=== PATIENT | male | born 1950 | race Caucasian/White ===

== ENCOUNTER 2020-11-07 06:35 | Day surgery (SDC) | payer MEDICARE, MEDICAID, SELFPAY ==
[2020-11-07 07:03] VITALS: BP 173/77; PULSE 63; RESP 18; TEMP 36.4; O2SAT 99; BMI 23.1
--- NOTE | 2020-11-07 07:13 | PCM.HP.STD ---
HPI - General HPI Narrative JALEEL SINGH, is a 69 M who presents to clinic with complaint of severe thickening of toenails. he is here to have the toenails removed to b/l hallux [facility] Medical History (Updated 11/07/20 @ 07:[address] Stuart Khoury, DPM) Alcohol use Arthritis Degenerative disc disease Easy bruising History of stress test Hypertension Injury of head and neck Leg cramps Smoker Wears dentures Home Medications atenolol 50 mg PO QHS 10/31/20 [History Last Taken Unknown] glucos sul [id number] [Glucosamine Chondroitin] 1 cap PO DAILY 10/31/20 [History Last Taken Unknown] multivitamin 1 tab PO DAILY 10/31/20 [History Last Taken Unknown] Allergy/AdvReac Type Severity Reaction Status Date / Time No Known Allergies Allergy Verified 11/07/20 07:00 Surgical History (Updated 10/31/20 @ 11:37 by Janet Hirsch) History of colonoscopy History of hernia repair Social History Smoking Status: Current every day smoker tobacco type: pipe Vital Signs Vital Signs Vital Signs: 11/07/20 07:01 11/07/20 07:03 Temperature 97.5 F L Temperature Source Temporal Pulse Rate 63 Respiratory Rate 18 Respiratory Pattern Normal Blood Pressure 173/77 H Blood Pressure Mean 109 Blood Pressure Source Monitor Blood Pressure Position Semi-Fowlers Blood Pressure Location Right Arm Pulse Ox 99 Oxygen Delivery Method Room Air Weight Weight: 75.387 kg Body Mass Index (BMI) 23.1 Physical Exam Narrative patient is alert and orientated x 3. he does not appear in any distress vascular: DP and PT pulses are palpable. CFT is less than 5 seconds. skin temperature is warm to warm. derm: b/l hallux toenail is severely thick and dystrophic cardiac: regular rate and rhythm lungs: clear and symmetrical Results Lab / Micro Data Micro: Microbiology 11/06/20 08:15 Interface Orders SARS-CoV-2 Antigen (Rapid) - Final Assessment & Plan Assessment/Plan (1) Onychomycosis: PLAN: patient with severe thickening of b/l hallux toenail. discussed options not limited to debridement vs medication vs removal. patient has elected for removal. pvr does show adequate perfusion to heal. patient will proceed with removal of b/l hallux toenail today under light sedeation. Patient does inform me today that he does smoke pipe tobacco. I informed patient that smoking does place him at risk of slow healing. I informed him that if he experiences slow healing, he could be at risk of infection of toe or bone and lead to amputation. I reviewed his pvr carefully with him and he does have what appears to be adequate perfusion to heal a toenail removal. I still informed patient it would be reasonable to wait until he stops smoking to proceed with procedure. he understands but he would like to proceed with procedure today. in front of [facility] nursing staff, patient freely accepts risk of removing toenail while smoking. he understands he is at risk of losing his toe due to smoking.
[2020-11-07] MEDS: Lactated Ringers 1,000 ML 100 ML IV (07:20)
--- NOTE | 2020-11-07 07:55 | PCM.DC ---
Discharge Instructions Diet Discharge Diet: No restrictions Activity Discharge Activity: Return to Normal Activity Return to work on:: 11/08/20August shower in (days): 1 Weight Bearing Status: Weight bearing as tolerated Dressing / Incision Call your doctor if your incision/area has: Continuous Slow Oozing, Sudden Increased Bleeding, Increased Pain/ Swelling, Increased Redness, Foul Smelling Discharge and Swelling at the incision site Call your doctor if you observe: Fever of 101 or Higher Change Dressing in: 1 day Remove Dressing in: 1 day Cleanse incision/area with: Soap & Water and - (soak the toes in soap and water twice daily x 10 minutes. apply neosporin and band aid. for the first few days, keep toe covered when showering. keep toes out of dirt or sand. ) Follow Up Care Please Follow Up With: Stuart Khoury DPM When: in 2 weeks Test Results: Test results from this visit will be discussed in further detail at your follow-up appointment, if applicable. Discharge Plan Admission Attending Provider: Stuart Khoury Primary Care Provider: Wai Turner Discharge Orders/Prescriptions Prescriptions: No Action atenolol 50 mg tablet 50 mg PO QHS RF: 0 multivitamin Tablet 1 tab PO DAILY RF: 0 Glucosamine Chondroitin 550-30-1 mg Capsule 1 cap PO DAILY RF: 0 Referrals / Follow Up: Wai Turner MD [Primary Care Provider] - Disposition Disposition (needs filled in before D/C Order can be placed): Home, Self Care
--- NOTE | 2020-11-07 07:57 | PCM.OPRPT ---
Report of Operation Date of Procedure: 11/07/20 Pre-Operative Diagnosis: onychomycosis, b/l hallux Post-Operative Diagnosis: onychomycosis b/l hallux Surgery/Procedure Performed:: phenol matrixectomy, b/l hallux Description of Surgical Findings:: severe thickening of b/l hallux toenail Surgeon: Stuart Khoury Type of Anesthesia: MAC/Supplemental Specimen's removed: none Drains: none Estimated Blood Loss (mL): minimal Description of Procedure: patient is a pleasant 69 year old male who complains of painful thickening toenails of b/l hallux who often times develops ingrowing nail or pain with cutting of the nail. he has been seen and evaluated by me. he is requesting removal of b/l hallux toenail. I discussed the procedure in great detail to remove the toenails. we discussed the post-op instructions to cleanse the toe daily and to apply local wound care to the toe. I discussed risks of this procedure not limited to infection, pain, swelling, bleeding, slow wound healing, recurrent nail growth, loss of toe. of note, patient informs me on day of surgery that he does smoke pipe tobacco. I informed patient that smoking can lead to slow healing and increased risk of loss of toe. I offered patient chance to reschedule. he states he really wants the toenails to b/l hallux removed. for this reason, he freely accepts risk of slow healing and/or loss of toe. Of note, he does have pvr performed last month and it does show he has normal perfusion to his toes. All risks and benefits and alternatives were dicussed. patient consents to proceed. patient was transferred to the operating room and placed on the operating room table in the supine position. he was identified by name and procedure. the b/l hallux was injected with 3 cc of 1% lidocaine plain. The b/l lower extremity was prepped and draped in the usual aseptic technique. time out was performed making note of procedure. attention was then directed to the right hallux. A digital tourniquet was applied to right hallux. the right hallux toenail was the freed with elevator and removed totally. a curette was used to assure no spicule left behind. all nonviable tissue was debrided. three applications of phenol was then applied to right hallux nail bed x 30 seconds each application. the toe was then irrigated. the tournqieut was removed and hemostasis was achieved. the toe was dressed with topical antibiotic, adaptic, 4x4 guaze and coban. attention was then directed to the left hallux. A digital tourniquet was applied to left hallux. the left hallux toenail was the freed with elevator and removed totally. a curette was used to assure no spicule left behind. all nonviable tissue was debrided. The proximal nail bed was found to be tearing due to thickening of the nail plate. no deep wound or exposed bone was noted. I felt that the best treatment for this would be to reinforce the proximal nail bed with suture. the nail bed that was tearing was cleansed with saline and reinforced with 2 simple interupted suture (4-0 moncryl). three applications of phenol was then applied to the left hallux nail bed x 30 seconds each application. the toe was then irrigated. the tournquet was removed and hemostasis was achieved. the toe was dressed with topical antibiotic, adaptic, 4x4 guaze and coban. Patient was then awakened and found to be in stable condition. he was discharged home in stable condition
[2020-11-07] MEDS: Lidocaine 1% (20 ml mdv) 20 ML Vial (08:18)
[2020-11-07] MEDS: Bacitracin 500 UNITS/GM PACKET (08:28)
[2020-11-07 08:50] VITALS: BP 173/77; BP 182/96; PULSE 60; RESP 16; TEMP 36.2; O2SAT 97
[2020-11-07 08:55] VITALS: BP 173/77; BP 179/87; PULSE 56; RESP 16; O2SAT 98
[2020-11-07 09:00] VITALS: BP 168/85; BP 173/77; PULSE 58; RESP 16; O2SAT 98
[2020-11-07 09:05] VITALS: BP 173/77; BP 182/88; PULSE 59; RESP 16; TEMP 36.1; O2SAT 97
[2020-11-07 10:00] VITALS: BP 173/77
== END 2020-11-07 10:10 | disposition home or self-care (01) ==
LOC: SDC 06:38 → AC 06:39
PROVIDERS: PCP Family Medicine; Referring Provider Podiatrist Foot & Ankle Surgery; Visit Provider Podiatrist Foot & Ankle Surgery
PROC: (CPT 11750; principal; 2020-11-07 08:00)
DX: B35.1 Tinea unguium (principal); I10 Essential (primary) hypertension; M19.90 Unspecified osteoarthritis, unspecified site; F17.290 Nicotine dependence, other tobacco product, uncomplicated; Z20.822 Contact with and (suspected) exposure to COVID-19; Z79.899 Other long term (current) drug therapy
CPT/HCPCS: 00400; 11750; 87426; C9803; J7120

== ENCOUNTER → 2021-09-02 | Outpatient (CLI) | payer MEDICARE, MEDICAID, SELFPAY ==
--- NOTE | 2021-09-02 08:02 | MRI_ITS ---
STUDY: MRI LUMBAR SPINE WITHOUT CONTRAST REASON FOR EXAM: Male, 70 years old. Low back pain. Degenerative disc disease. Stenosis. TECHNIQUE: Standardized fat and water weighted pulse sequences were obtained in the sagittal and axial planes. COMPARISON: Lumbar spine radiographs 11/15/2020. FINDINGS: T10-T11: (Sagittal only). MODIC type I degenerative vertebral marrow edema underneath the vertebral endplates, greater at T10. Moderate disc space height narrowing. Schmorl''s nodes in the posterior vertebral endplates. Minimal ventral extradural defect due to small posterior bulging annulus. Suspicious central canal stenosis with an AP canal diameter of 5.2 mm due to posterior marginal spurs, posterior ligamenta flava hypertrophy and moderately pronounced bilateral degenerative facet arthropathy. Normal bilateral intervertebral neural foramina. T11-T12: (Sagittal only). Normal T11 inferior endplate. Mild to moderate old anterior wedge compression fracture of the upper T12 vertebral body causing increased anterior disc space height. Schmorl''s nodes in the posterior vertebral endplates. Minimal ventral extra dural defect due to tiny posterior bulging annulus. Suspicious mild central canal stenosis with an AP canal diameter of 8.1 mm. Normal bilateral intervertebral neural foramina. T12-L1: (Sagittal only). Prominent Schmorl''s node in the T12 inferior endplate. Normal L1 superior endplate. Increased anterior disc space height due to old anterior wedge compression fracture of the T12 vertebral body. Normal central canal and bilateral intervertebral neural foramina. Normal lumbar lordosis. Moderate levoscoliosis of the lumbar spine. Normal conus medullaris that terminates at the mid L1 vertebral body level. L1-2: Normal L1 inferior endplate. Schmorl''s node in the central L2 superior endplate. Moderate disc space height narrowing. Mild right lateral degenerative subluxation of L1 on L2. Mild degenerative retrolisthesis of L1 on L2. Mild asymmetric degenerative facet arthropathy. Normal central canal and bilateral lateral recesses. Normal bilateral intervertebral neural foramina. L2-3: Pronounced right-sided disc space height narrowing. MODIC type I degenerative vertebral marrow edema underneath the right side of the vertebral endplates. Prominent dorsal epidural lipomatosis. Mild bilateral degenerative facet arthropathy. Pronounced central canal stenosis with an AP canal diameter of 4.3 mm. Normal bilateral lateral recesses. Mild stenosis of the right intervertebral neural foramen. Normal left intervertebral neural foramen. L3-4: Pronounced right-sided disc space height narrowing. MODIC type I degenerative vertebral marrow edema underneath the left side of the vertebral endplates. Schmorl''s node in the L4 superior endplate. Pronounced central canal stenosis with an AP canal diameter of at least 3.2 mm. Pronounced stenosis of the left lateral recess. Normal right lateral recess. Pronounced left degenerative facet arthropathy and moderate right degenerative facet arthropathy. Pronounced stenosis of the right intervertebral neural foramen. Normal left intervertebral neural foramen. L4-5: Pronounced left-sided disc space height narrowing with prominent left lateral marginal spurs. Mild MODIC type I degenerative vertebral marrow edema underneath the right side of the vertebral endplates. Moderately pronounced left iterative facet arthropathy. Mild to moderate right degenerative facet arthropathy. Severe central canal stenosis with an AP canal diameter of 2.7 mm. Mild dorsal epidural lipomatosis. Prominent posterior ligamenta flava hypertrophy. Severe stenosis of the left lateral recess. Mild stenosis of the right lateral recess. Moderately pronounced stenosis of the left intervertebral neural foramen with suspicious impingement of the left L4 nerve due to suspicious small left foraminal cephalad disc extrusion (series 2, images 5-6; series 3, images 5-6). Mild to moderate stenosis of the right intervertebral neural foramen. L5-S1: Normal endplates. Normal disc height, hydration and morphology. Mild to moderate bilateral degenerative facet arthropathy. Normal central canal and bilateral lateral recesses. Mild to moderate stenosis of the left intervertebral neural foramen. Normal right intervertebral neural foramen. Normal visualized sacral ala. Normal visualized paraspinous soft tissue structures. MRI/Spine Lumbar (Routine) IMPRESSION: 1. Severe central canal stenosis at L4-L5 disc space level with an AP canal diameter of 2.7 mm, severe stenosis of the left lateral recess, moderately pronounced stenosis of the left intervertebral neural foramen with suspicious small left foraminal cephalad disc extrusion impinging the left L4 nerve (series 2, images 5-6; series 3, images 5-6). 2. Severe central canal stenosis at L3-L4 disc space level with an AP canal diameter of 3.2 mm, pronounced stenosis of the left lateral recess, pronounced stenosis of the right intervertebral neural foramen and left-sided L3-4 intervertebral osteochondritis (MODIC type I). 3. Pronounced central canal stenosis at L2-L3 disc space level with an AP canal diameter of 4.3 mm and right-sided L2-L3 intervertebral osteochondritis (MODIC type I). 4. Suspicious central canal stenosis at T10-T11 disc space level with an AP canal diameter of 5.2 mm but no axial projections to confirm. Additionally, pronounced T10-T11 intervertebral osteochondritis (MODIC type I) with greater bone marrow edema in the T10 vertebral body. Electronically Signed: Isael Scherer MD at 13:11 EDT ,
== END | disposition home or self-care (01) ==
LOC: MRI 08:02
PROVIDERS: PCP Family Medicine; Referring Provider Orthopaedic Surgery; Visit Provider Orthopaedic Surgery
DX: M48.061 Spinal stenosis, lumbar region without neurogenic claudication (principal); M54.50 Low back pain, unspecified
CPT/HCPCS: 72148

== ENCOUNTER 2022-06-29 09:44 | Observation (INO) | payer MEDICARE, MEDICAID, SELFPAY ==
[2022-06-29 09:45] VITALS: BP 169/87; PULSE 66; RESP 16; TEMP 36.4; O2SAT 95; BMI 24.5
--- NOTE | 2022-06-29 10:25 | RAD_ITS ---
EXAM: XR LEFT FEMUR, 2 VIEWS CLINICAL INDICATION: pain TECHNIQUE: Frontal and lateral views of the left femur. This report was created using [employer] report generation technology. COMPARISON: None. FINDINGS: BONES/JOINTS: No acute abnormality. SOFT TISSUES: Normal. No soft tissue swelling or gas. No radiopaque foreign body. RAD/Femur Min 2 Views IMPRESSION: Intact left femur. Electronically Signed: Sebastien Mariscal MD at 11:04 EDT ,
--- NOTE | 2022-06-29 10:25 | RAD_ITS ---
EXAM: XR PELVIS, 1 OR 2 VIEWS CLINICAL INDICATION: fall TECHNIQUE: Frontal view of the pelvis. This report was created using [employer] report generation technology. COMPARISON: None. FINDINGS: BONES/JOINTS: No acute abnormality. SOFT TISSUES: Normal. No soft tissue swelling or gas. RAD/Pelvis 1 or 2 Views IMPRESSION: No evidence of displaced pelvic fracture. Electronically Signed: Sebastien Mariscal MD at 11:03 EDT ,
--- NOTE | 2022-06-29 10:26 | EKG12_ITS ---
Test Reason : FALL Blood Pressure : / mmHG Vent. Rate : 086 BPM Atrial Rate : 062 BPM P-R Int : 134 ms QRS Dur : 146 ms QT Int : 434 ms P-R-T Axes : 059 -64 069 degrees QTc Int : 519 ms Sinus rhythm with frequent Premature ventricular complexes Left axis deviation Right bundle branch block Abnormal ECG Confirmed by GUERO HOWARD, GILMAR ([id number]), offline editor ARMINDA CRESPO ([id number]) on 07/01/2022 9:54:40 AM Referred By: Confirmed By:GILMAR JACK MD
[2022-06-29] MEDS: 0.9% Normal Saline 1,000 ML 1000 ML IV (10:38)
[2022-06-29 10:40] LABS: Absolute Lymphocyte Count 4.08 X10^3/uL (0.83-4.51); Absolute Neutrophil Count 5.1 X10^3/uL (2.0-7.7); Basophil# 0.04 X10^3/uL; Basophil% 0.4 % (0-1); Eosinophil# 0.08 X10^3/uL; Eosinophils% 0.8 % (0-5); Hematocrit 41.1 % (40-54); Hemoglobin 13.8 g/dL (13.0-16.5); Lymphocyte # 4.08 X10^3/ul (0.83-4.51); Lymphocyte % 39.7 % (19-41); Mean Corp Hgb Conc 33.6 g/dL (32-36); Mean Corpuscular Volume 101.2 fL (80-94); Mean Platelet Vol. 9.1 fl (6.2-12.0); Monocyte# 0.91 X10^3/uL; Monocyte% 8.9 % (0-10); NRBC Flagged by Analyzer 0 % (0-5); Neutrophil # 5.11 X10^3/uL (2.7-7.7); Neutrophil % 49.6 % (47-70); POSITIVE MORPHOLOGY YES; Platelet Count 179 K/mm3 (150-450); RBC Distribution Width CV 12.6 % (11.6-14.6); RBC Distribution Width SD 47.1 fl (35.1-43.9); Red Blood Count 4.06 M/mm3 (4.6-6.2); White Blood Count 10.3 K/mm3 (4.4-11.0)
[2022-06-29 10:45] LABS: Differential Indicated SCAN CRITERIA MET
--- NOTE | 2022-06-29 10:50 | RAD_ITS ---
EXAM: XR CHEST, 1 VIEW CLINICAL INDICATION: Tachycardia TECHNIQUE: Frontal view of the chest. This report was created using [employer] report generation technology. COMPARISON: None. FINDINGS: LUNGS AND PLEURAL SPACES: Normal. No consolidation or edema. No pneumothorax. No effusion. HEART: Normal heart size. MEDIASTINUM: No mediastinal or hilar mass. BONES/JOINTS: Degenerative narrowing of the glenohumeral joints. Mild dextroscoliosis of the upper thoracic spine. SOFT TISSUES: Normal. RAD/Chest 1 View (Portable) IMPRESSION: No acute cardiopulmonary abnormality. Electronically Signed: Sebastien Mariscal MD at 11:03 EDT ,
[2022-06-29 11:03] LABS: ALB/GLOB Ratio 0.9 RATIO (0.9-2.4); AST(SGOT) 31 U/L (15-37); Alanine Aminotransfer ALT/SGPT 25 U/L (16-61); Albumin, Serum 3.5 g/dL (3.2-5.0); Alkaline Phosphatase 66 U/L (45-117); Anion Gap 7 (5-15); BUN 20 mg/dL (7-18); BUN/Creat Ratio 15.9 RATIO (10-20); Calcium,Total 9.5 mg/dL (8.5-10.1); Chloride 98 mmol/L (98-107); Creatinine, Serum 1.26 mg/dL (0.70-1.30); EST Glomerular Filtration Rate 60 mL/min (>60); Est Glom Filt Rate - Afr Amer 72 mL/min (>60); Estimated Creatinine Clearance 57.27 ml/min; Globulin 3.7 g/dL (2.2-4.2); Glucose 106 mg/dL (74-106); Potassium 4.7 mmol/L (3.5-5.1); Protein, Total 7.2 g/dL (6.4-8.2); Sodium Level 133 mmol/L (136-145); Troponin-I HS 10 pg/mL (3.0-78.0)
--- NOTE | 2022-06-29 11:08 | EDS_ITS ---
HPI History of Present Illness Chief Complaint: Lower Extremity Injury Narrative Narrative: 71-year-old male presenting with left hip and left posterior leg pain. The fall 7 days ago. He states he was in his basement and he turned wrong and fell onto his left leg. He reports that he has been low crawling around his house and having difficulty getting around. Today he was able to crawl over to his washing machine and start a load of laundry and somehow was able to pull himself up and stand on both legs although it was difficult. He anteverting close the lid onto his right hand has a superficial abrasion here. He states that at this point he was having so much trouble getting around for a week that he called a friend who called EMS. Patient states he thinks he needs correction for short while because he cannot care for himself at home. He does admit to drinking about 3 beers a day. He denies drinking alcohol 2-day. PFSH [facility] Medical History Alcohol use Arthritis Degenerative disc disease Easy bruising History of stress test Hypertension Injury of head and neck Leg cramps Smoker Wears dentures Home Medications atenolol 50 mg tablet 100 mg PO QHS bp 10/31/20 [History Last Taken Unknown] glucosamine sulf dipot chlr,msm,chond 550 mg-C 30 mg-fernando 1 mg capsule (Glucosamine Chondroitin) 1 cap PO DAILY supplement 10/31/20 [History Last Taken Unknown] multivitamin 1 tab PO DAILY supplement 10/31/20 [History Last Taken Unknown] amlodipine 10 mg tablet 10 mg PO DAILY 06/29/22 [History Last Taken Unknown] Allergy/AdvReac Type Severity Reaction Status Date / Time No Known Allergies Allergy Verified 11/15/20 08:24 Family History Mother Diabetes Surgical History History of colonoscopy History of hernia repair Social History household members: none housing: house Smoking Status: Current every day smoker tobacco type: pipe other: every day since . alcohol intake: current alcohol intake frequency: 3 or more drinks per day Alcohol type: beer substance use type: does not use what type of physical activity do you participate in: walking frequency: daily seatbelt use: always do you feel safe at home: Yes ROS ROS ED Constitutional Constitutional ED: Denies chills or fever(s) Eyes Eyes: Denies change in vision or diplopia ENT ENT ED: Denies rhinorrhea or sore throat Cardiovascular Cardiovascular: Denies chest pain or palpitations Respiratory/Chest Respiratory/Chest: Denies cough or dyspnea Gastrointestinal Gastrointestinal: Denies abdominal pain, nausea or vomiting Genitourinary Genitourinary ED: Denies dysuria or hematuria Musculoskeletal Musculoskeletal: Reports other Details: Left hip and left posterior thigh pain Integumentary Denies abscess or Abrasions Neurologic Neurologic: Denies headache(s) Psychiatric Psychiatric: Denies anxiety or depression EXAM Physical Exam Const Vital Signs: 06/29/22 09:45 Temperature 97.6 F L Temperature Source Temporal Pulse Rate 66 Respiratory Rate 16 Blood Pressure 169/87 H Blood Pressure Mean 114 Pulse Ox 95 Oxygen Delivery Method Room Air Positive well nourished General Appearance ED: NAD HEENT Reports moist mucous membranes normocephalic and atraumatic Chest Wall inspection of chest normal Resp normal respiratory effort and no retractions Auscultation: Negative for rales, rhonchi or wheezes Cardio regular rate and regular rhythm GI non-tender Extremity Extremity Narrative: Tenderness palpation over the left posterior thigh and left greater trochanter region. Patient is able to flex the leg somewhat off of the bed but complains of pain with doing so. Negative logroll. Neuro oriented x3 and CN's II-XII intact bilaterally Sensorium / Orientation: alert Motor Exam: strength 5/5 throughout Psych mental status grossly normal MDM MDM MDM Narrative Medical decision making narrative: Patient presenting with continued left leg pain after a fall 1 week ago. He request correction. Will obtain images of the left hip and left femur. Also CBC to assess hemoglobin, white blood cell count, differential. CMP to assess liver function, renal function, glucose, anion gap. Chest x-ray, EKG and troponin. CBC and CMP are unremarkable. High-sensitivity troponin is 10. EKG on my interpretation shows normal sinus rhythm with a ventricular of 86 bpm with PVCs. Right bundle branch block pattern noted. Chest x-ray on my interpretation does not show any acute process. Radiologist interprets this and agrees. My interpretation of the left hip and left femur x-rays is no acute fractures or subluxations. Patient requesting correction because he cannot care for himself at home. Will discuss with hospitalist for admission. Impression: 1. Mechanical fall 2. Left hip pain 3. Left thigh pain Lab Data Labs: Laboratory Results - last 24 hr 06/29/22 06/29/22 06/29/22 10:32 10:32 10:32 WBC 10.3 RBC 4.06 L Hgb 13.8 Hct 41.1 MCV 101.2 H MCH 34.0 H MCHC 33.6 RDW Std Deviation 47.1 H RDW Coeff of Gracy 12.6 Plt Count 179 MPV 9.1 Immature Gran % (Auto) 0.600 Neut % (Auto) 49.6 Lymph % (Auto) 39.7 Nicol[place] % (Auto) 8.9 Eos % (Auto) 0.8 Baso % (Auto) 0.4 Absolute Neuts (auto) 5.1 Absolute Lymphs (auto) 4.08 Nucleated RBC % 0 Sodium 133 L Potassium 4.7 Chloride 98 Carbon Dioxide 28.0 Anion Gap 7 BUN 20 H Creatinine 1.26 Estim Creat Clear Calc 57.27 Est GFR (MDRD) Af Amer 72 Est GFR (MDRD) Non-Af 60 BUN/Creatinine Ratio 15.9 Glucose 106 Calcium 9.5 Total Bilirubin 1.00 AST 31 ALT 25 Alkaline Phosphatase 66 Troponin I High Sens 10 Total Protein 7.2 Albumin 3.5 Globulin 3.7 Albumin/Globulin Ratio 0.9 Ethyl Alcohol < 3.0 Radiography Diagnostic Testing: Clinical Impression(s) from Imaging Studies Femur X-Ray 06/29/22 10:25 IMPRESSION: Intact left femur. Electronically Signed: Sebastien Mariscal MD at 11:04 EDT , Pelvis X-Ray 06/29/22 10:25 IMPRESSION: No evidence of displaced pelvic fracture. Electronically Signed: Sebastien Mariscal MD at 11:03 EDT , Chest X-Ray 06/29/22 10:50 IMPRESSION: No acute cardiopulmonary abnormality. Electronically Signed: Sebastien Mariscal MD at 11:03 EDT , Discharge Plan Triage Chief Complaint: Lower Extremity Injury ED Provider: Raymond Gould Dx/Rx/DC Orders Prescriptions: No Action atenolol 50 mg tablet 100 mg PO QHS Label Comments: TAKE 1 TABLET BY MOUTH EVERY DAY multivitamin Tablet 1 tab PO DAILY Glucosamine Chondroitin 550-30-1 mg Capsule 1 cap PO DAILY amlodipine 10 mg tablet 10 mg PO DAILY Label Comments: TAKE 1 TABLET BY MOUTH ONCE DAILY Primary Care Provider: Wai Turner Referrals: Wai Turner MD [Primary Care Provider] -
[2022-06-29 11:33] LABS: Alcohol, Blood (Medical)-Serum < 3.0 mg/dL
[2022-06-29 11:54] VITALS: BP 160/80; PULSE 61; RESP 20; TEMP 36.2; O2SAT 95
--- NOTE | 2022-06-29 12:29 | PCM.HP.STD ---
HPI - General General Date of Admission: 06/29/22 HPI Narrative JALEEL SINGH, is a 71 M who presents for to the hospital with left leg pain after a fall 7 days ago. X-rays do not indicate a fracture however he does have significant pain with mobility in his left thigh and hamstring area. He states that he has been essentially crawling around his house and has been having increased difficulty getting around. Lab work is unremarkable, blood pressure is elevated likely due to pain. [facility] Medical History Alcohol use Arthritis Degenerative disc disease Easy bruising History of stress test Hypertension Injury of head and neck Leg cramps Smoker Wears dentures Home Medications atenolol 50 mg tablet 100 mg PO QHS bp 10/31/20 [History Last Taken Unknown] glucosamine sulf dipot chlr,msm,chond 550 mg-C 30 mg-fernando 1 mg capsule (Glucosamine Chondroitin) 1 cap PO DAILY supplement 10/31/20 [History Last Taken Unknown] multivitamin 1 tab PO DAILY supplement 10/31/20 [History Last Taken Unknown] amlodipine 10 mg tablet 10 mg PO DAILY 06/29/22 [History Last Taken Unknown] Allergy/AdvReac Type Severity Reaction Status Date / Time No Known Allergies Allergy Verified 11/15/20 08:24 Family History Mother Diabetes Surgical History History of colonoscopy History of hernia repair Social History household members: none housing: house Smoking Status: Current every day smoker tobacco type: pipe other: every day since . alcohol intake: current alcohol intake frequency: 3 or more drinks per day Alcohol type: beer substance use type: does not use what type of physical activity do you participate in: walking frequency: daily seatbelt use: always do you feel safe at home: Yes ROS Constitutional Constitutional: Denies chills, fatigue, fever(s) or malaise Eyes Eyes: Denies blurry vision ENT HEENT: Denies headache(s) or nasal discharge Cardiovascular Cardiovascular: Denies chest pain, dyspnea on exertion or syncope Respiratory/Chest Respiratory/Chest: Denies cough, shortness of breath at rest or shortness of breath with exertion Gastrointestinal Gastrointestinal: Denies constipation, diarrhea, nausea or vomiting Genitourinary Genitourinary: Denies dysuria Musculoskeletal Musculoskeletal: Reports joint pain Neurologic Neurologic: Denies focal weakness, numbness or tremor(s) Psychiatric Psychiatric: Denies anxiety or depression Vital Signs Vital Signs Vital Signs: 06/29/22 09:45 06/29/22 11:54 Temperature 97.6 F L 97.2 F L Temperature Source Temporal Oral Pulse Rate 66 61 Respiratory Rate 16 20 H Blood Pressure 169/87 H 160/80 H Blood Pressure Mean 114 106 Pulse Ox 95 95 Oxygen Delivery Method Room Air Room Air Weight Weight: 175 lb 7.807 oz Body Mass Index (BMI) 24.5 Physical Exam Narrative General: Alert, Oriented x3, Cooperative, No apparent distress HEENT: Atraumatic, PERRLA, EOMI, Normocephalic Oral: Moist Mucosa Neck: Supple, No JVD Lungs: Clear to auscultation, Normal air movement, No rhonchi, No wheeze, No rales Cardiovascular: Regular rate, Regular Rhythm, Normal S1, Normal S2, No murmurs Abdomen: Soft, Non Tender, Non-Distended, No Hepato-splenomegaly Extremities: No edema, Capillary Refill Less than 3 Seconds Skin: No rashes, No breakdown Musculoskeletal: Tenderness to palpation of his left hamstring and hip area Neurological: Cranial nerves II-XII grossly intact, Motor Exam 5/5 strength throughout, Sensory exam intact to light touch and pain Psych/Mental Status: Normal Affect, Appropriate Results Lab / Micro Data Result Diagrams: 06/29/22 10:32 06/29/22 10:32 Labs: Laboratory Results - last 24 hr 06/29/22 10:32: WBC 10.3, RBC 4.06 L, Hgb 13.8, Hct 41.1, MCV 101.2 H, MCH 34.0 H, MCHC 33.6, RDW Std Deviation 47.1 H, RDW Coeff of Gracy 12.6, Plt Count 179, MPV 9.1, Immature Gran % (Auto) 0.600, Neut % (Auto) 49.6, Lymph % (Auto) 39.7, [place] % (Auto) 8.9, Eos % (Auto) 0.8, Baso % (Auto) 0.4, Absolute Neuts (auto) 5.1, Absolute Lymphs (auto) 4.08, Nucleated RBC % 0 06/29/22 10:32: Sodium 133 L, Potassium 4.7, Chloride 98, Carbon Dioxide 28.0, Anion Gap 7, BUN 20 H, Creatinine 1.26, Estim Creat Clear Calc 57.27, Est GFR (MDRD) Af Amer 72, Est GFR (MDRD) Non-Af 60, BUN/Creatinine Ratio 15.9, Glucose 106, Calcium 9.5, Total Bilirubin 1.00, AST 31, ALT 25, Alkaline Phosphatase 66, Troponin I High Sens 10, Total Protein 7.2, Albumin 3.5, Globulin 3.7, Albumin/Globulin Ratio 0.9 06/29/22 10:32: Ethyl Alcohol < 3.0 Radiology Impression Femur X-Ray 06/29/22 10:25 IMPRESSION: Intact left femur. Electronically Signed: Sebsatien Mariscal MD at 11:04 EDT , Pelvis X-Ray 06/29/22 10:25 IMPRESSION: No evidence of displaced pelvic fracture. Electronically Signed: Sebastien Mariscal MD at 11:03 EDT , Chest X-Ray 06/29/22 10:50 IMPRESSION: No acute cardiopulmonary abnormality. Electronically Signed: Sebastien Mariscal MD at 11:03 EDT , Assessment & Plan Assessment/Plan (1) Debility: (2) Left leg pain: PLAN: Plan 1. Left leg pain after a fall 7 days ago with debility and inability to complete ADLs ? Imaging is unremarkable for fracture ? We will have him evaluated by PT and OT ? We will provide him with Tylenol for pain management. 2. Hypertension ? Blood pressure is a little bit elevated due to pain ? We will resume his home Norvasc and atenolol DVT: Jose Charges/Coding Visit Charges Inpatient E&M: 02476 Init Hosp L2
[2022-06-29 12:46] VITALS: RESP 18; BMI 23.7
[2022-06-29 13:10] VITALS: BP 175/89; PULSE 61; RESP 18; TEMP 36.6; O2SAT 98
[2022-06-29 22:55] VITALS: BP 133/74; PULSE 64; RESP 16; TEMP 37.1; O2SAT 96
[2022-06-29] MEDS: Atenolol 100 MG Tablet PO (23:58)
[2022-06-29] MEDS: Acetaminophen 325 MG Tablet 650 MG PO (23:59)
[2022-06-30] MEDS: 0.9% Saline Lock 10 ML Syringe IV (00:01)
[2022-06-30 02:36] VITALS: BP 140/77; PULSE 58; RESP 18; TEMP 37.2; O2SAT 93
[2022-06-30 06:45] LABS: Absolute Neutrophil Count 3.2 X10^3/uL (2.0-7.7); Basophil# 0.05 X10^3/uL; Basophil% 0.6 % (0-1); Eosinophil# 0.19 X10^3/uL; Eosinophils% 2.3 % (0-5); Hematocrit 34.4 % (40-54); Hemoglobin 11.4 g/dL (13.0-16.5); Lymphocyte % 50.1 % (19-41); Mean Corp Hgb Conc 33.1 g/dL (32-36); Mean Corpuscular Hgb 33.6 pg (27.0-32.0); Mean Corpuscular Volume 101.5 fL (80-94); Monocyte% 7.3 % (0-10); NRBC Flagged by Analyzer 0 % (0-5); Neutrophil # 3.22 X10^3/uL (2.7-7.7); Neutrophil % 39.3 % (47-70); POSITIVE MORPHOLOGY YES; Platelet Count 160 K/mm3 (150-450); RBC Distribution Width CV 12.7 % (11.6-14.6); RBC Distribution Width SD 47.7 fl (35.1-43.9); Red Blood Count 3.39 M/mm3 (4.6-6.2); White Blood Count 8.2 K/mm3 (4.4-11.0)
[2022-06-30 07:08] LABS: Differential Indicated SCAN CRITERIA MET
[2022-06-30 07:09] LABS: Anion Gap 6 (5-15); BUN 19 mg/dL (7-18); BUN/Creat Ratio 22.9 RATIO (10-20); Calcium,Total 8.5 mg/dL (8.5-10.1); Chloride 103 mmol/L (98-107); Creatinine, Serum 0.83 mg/dL (0.70-1.30); Differential Comment SCANNED; EST Glomerular Filtration Rate 97 mL/min (>60); Est Glom Filt Rate - Afr Amer 117 mL/min (>60); Estimated Creatinine Clearance 86.94 ml/min; Glucose 100 mg/dL (74-106); Sodium Level 136 mmol/L (136-145)
--- NOTE | 2022-06-30 09:05 | PCM.PN.HOSP ---
Subjective Subjective Doing well, no issues overnight. Still with some pain with movement in bed Objective Data Objective Data Vital Signs: Vital Signs Temp Pulse Resp BP Pulse Ox O2 Del Method 99.0 F 58 L 18 140/77 H 93 Room Air 06/30/22 02:36 06/30/22 02:36 06/30/22 02:36 06/30/22 02:36 06/30/22 02:36 06/30/22 02:37 Oxygen Delivery Method Room Air Weight: 170 lb Body Mass Index (BMI) 23.7 Intake & Output: Intake and Output for Last 24 Hours 06/29/22 06/30/22 07/01/22 03:59 03:59 03:59 Intake Total 1700 / 1700 Output Total 550 / 550 250 / 250 Balance 1150 / 1150 -250 / -250 Lab / Micro Data Result Diagrams: 06/30/22 06:08 06/30/22 06:08 Labs: Laboratory Results - last 24 hr 06/29/22 10:32: WBC 10.3, RBC 4.06 L, Hgb 13.8, Hct 41.1, MCV 101.2 H, MCH 34.0 H, MCHC 33.6, RDW Std Deviation 47.1 H, RDW Coeff of Gracy 12.6, Plt Count 179, MPV 9.1, Immature Gran % (Auto) 0.600, Neut % (Auto) 49.6, Lymph % (Auto) 39.7, [place] % (Auto) 8.9, Eos % (Auto) 0.8, Baso % (Auto) 0.4, Absolute Neuts (auto) 5.1, Absolute Lymphs (auto) 4.08, Nucleated RBC % 0 06/29/22 10:32: Sodium 133 L, Potassium 4.7, Chloride 98, Carbon Dioxide 28.0, Anion Gap 7, BUN 20 H, Creatinine 1.26, Estim Creat Clear Calc 57.27, Est GFR (MDRD) Af Amer 72, Est GFR (MDRD) Non-Af 60, BUN/Creatinine Ratio 15.9, Glucose 106, Calcium 9.5, Total Bilirubin 1.00, AST 31, ALT 25, Alkaline Phosphatase 66, Troponin I High Sens 10, Total Protein 7.2, Albumin 3.5, Globulin 3.7, Albumin/Globulin Ratio 0.9 06/29/22 10:32: Ethyl Alcohol < 3.0 06/30/22 06:08: WBC 8.2, RBC 3.39 L, Hgb 11.4 L, Hct 34.4 L, MCV 101.5 H, MCH 33.6 H, MCHC 33.1, RDW Std Deviation 47.7 H, RDW Coeff of Gracy 12.7, Plt Count 160, MPV 9.0, Immature Gran % (Auto) 0.400, Neut % (Auto) 39.3 L, Lymph % (Auto) 50.1 H, [place] % (Auto) 7.3, Eos % (Auto) 2.3, Baso % (Auto) 0.6, Absolute Neuts (auto) 3.2, Absolute Lymphs (auto) 4.10, Nucleated RBC % 0, Differential Comment SCANNED 06/30/22 06:08: Sodium 136, Potassium 4.0, Chloride 103, Carbon Dioxide 27.0, Anion Gap 6, BUN 19 H, Creatinine 0.83, Estim Creat Clear Calc 86.94, Est GFR (MDRD) Af Amer 117, Est GFR (MDRD) Non-Af 97, BUN/Creatinine Ratio 22.9 H, Glucose 100, Calcium 8.5 Radiography Diagnostic Testing: Radiology Impression Femur X-Ray 06/29/22 10:25 IMPRESSION: Intact left femur. Electronically Signed: Sebastien Mariscal MD at 11:04 EDT , Pelvis X-Ray 06/29/22 10:25 IMPRESSION: No evidence of displaced pelvic fracture. Electronically Signed: Sebastien Mariscal MD at 11:03 EDT , Chest X-Ray 06/29/22 10:50 IMPRESSION: No acute cardiopulmonary abnormality. Electronically Signed: Sebastien Mariscal MD at 11:03 EDT , Physical Exam Narrative General: Alert, Oriented x3, Cooperative, No apparent distress HEENT: Atraumatic, PERRLA, EOMI, Normocephalic Oral: Moist Mucosa Neck: Supple, No JVD Lungs: Clear to auscultation, Normal air movement, No rhonchi, No wheeze, No rales Cardiovascular: Regular rate, Regular Rhythm, Normal S1, Normal S2, No murmurs Abdomen: Soft, Non Tender, Non-Distended, No Hepato-splenomegaly Extremities: No edema, Capillary Refill Less than 3 Seconds Skin: No rashes, No breakdown Musculoskeletal: Tenderness to palpation of his left hamstring and hip area, straight leg raise on the left is negative Neurological: Cranial nerves II-XII grossly intact, Motor Exam 5/5 strength throughout, Sensory exam intact to light touch and pain Psych/Mental Status: Normal Affect, Appropriate Assessment & Plan Assessment/Plan (1) Debility: (2) Left leg pain: PLAN: Plan 1. Left leg pain after a fall 7 days ago with debility and inability to complete ADLs ? Imaging is unremarkable for fracture ? We will have him evaluated by PT and OT ? We will provide him with Tylenol for pain management. 2. Hypertension ? Blood pressure is a little bit elevated due to pain ? We will resume his home Norvasc and atenolol DVT: Lovenox Charges/Coding Visit Charges Inpatient E&M: 19340 Subs Hosp L2
[2022-06-30 09:18] VITALS: BP 137/72; PULSE 62; RESP 18; TEMP 37.4; O2SAT 94
[2022-06-30 09:30] VITALS: O2SAT 94
[2022-06-30] MEDS: amLODIPine 10 MG Tablet PO (09:31)
[2022-06-30] MEDS: Acetaminophen 325 MG Tablet 650 MG PO (09:34)
[2022-06-30] MEDS: Enoxaparin 40 MG/0.4 ML Syringe SC (09:35)
--- NOTE | 2022-06-30 12:10 | CASEMGMT ---
Discussed therapy eval in rounds, plan for SNF at ma.
--- NOTE | 2022-06-30 13:32 | CASEMGMT ---
Social Work SW was updated from SANGEETA Mcfarland that MD Hinkle stated pt needs SNF. SW reviewed therapy notes. Pt ambulated 40 feet and pt's six clicks mobility assessment stated pt could go home with help. SW in to pt room to discuss discharge plan. SW explained options to pt regarding going to nursing facility or going home with HHC. Pt stated preference would be to go home with HHC as long as HHC would do rehab with pt. SW explained HHC would only come 2-3 times per week and would not be a full service for the whole week. Pt voiced understanding, stated has neighbor, Amanda, who helps with meals and sometimes light cleaning. Pt shared has 9 steps to enter apartment but feels confident that is manageable. SW explained difference between SNF and HHC as pt appeared to need extra information and processing time. After second explanation to confirm pt understanding pt again stated preference would be to return home with home health care. SW updated SANGEETA Mcfarland of pt preference. PLAN: Home with HHC JEFFREY Fabian
--- NOTE | 2022-06-30 13:45 | CASEMGMT ---
Addendum entered by Bruna Dave 06/30/22 15:28: SANGEETA GNUYỄN into pt room, pt has chosen 1. [facility] and 2. [facility]. ELAYNE Addison at [facility], they are not in network with pt insurance. Referral sent to N via careport at this time. Original Note: SANGEETA NGUYỄN Assessment: Face to Face with pt for initial transition planning/care coordination assessment. SANGEETA NGUYỄN introduced self and role at [facility], pt voices understanding and consents to assessment. Pt is A/O x4 and answers all questions appropriately at this time. Pt sitting up in chair in no distress on RA. Care providers, pharmacy, and demographics verified/updated. Admitting Dx: debility PCP:Johnny Specialists:Denies. Preferred Pharmacy: [facility] Insurance: [facility] Dual Comp, LIAM Prescription Benefit: yes LNOK: Pt does not have any contancts listed. States he does not have his phone to give info for contacts. Living Arrangements: Pt lives alone in a basement apt with 9 steps to enter without a rail. Pt reports typically he is I in ADL's but currently needs assistance. Pt has a friend Amanda who cooks his meals and he reheats. Pt does own laundry. Transportation: Pt drives self and denies concerns with transportation. DME/HHC/SNF: Pt denies having any DME, previous HHC or SNF stays. Pt states he feels he can go home. He states he thinks he can maneuver his steps. He states he did not do steps with therapy. SANGEETA NGUYỄN left room and went to speak with PT and OT. They state pt is able to do steps and home with HHC is appropriate, recommend [facility]. SANGEETA NGUYỄN back into room. Pt agreeable to walker. Provided him with a verbal local in network list of DME companies, pt chose [employer]. Patient was provided a list of HHC providers including quality and resource use data and consistent with the patient?s preferred geographic region, medical needs, and insurance network were [facility]. Pt to review and SANGEETA NGUYỄN to check back. Discussed having SN, PT, OT and an aide to assist him in the home. Discussed the frequency and duration of HHC vs SNF. Pt feels he prefers HHC than SNF. Pt states no further concerns/needs. CM to follow. Advised pt to ask CM if any further question/concerns/needs arise, voices understanding. Pt Goal: Home with HHC Plan: Home with HHC, pt unsure if he will have transportation home.
[2022-06-30 15:15] VITALS: BP 117/69; PULSE 61; RESP 16; TEMP 36.7; O2SAT 95
--- NOTE | 2022-06-30 15:28 | CASEMGMT ---
SANGEETA CM in to discuss OLIVA form with patient. RN CM explained OLIVA form, patient voiced understanding. Pt signed form and filed in chart. Pt provided with a copy of signed OLIVA form. Patient had no further questions or concerns at this time.
[2022-06-30 21:29] VITALS: BP 128/62; PULSE 61; RESP 16; TEMP 36.8; O2SAT 94
[2022-06-30] MEDS: Atenolol 100 MG Tablet PO (21:34)
[2022-07-01 05:43] VITALS: BP 136/72; PULSE 65; RESP 16; TEMP 36.8; O2SAT 93
--- NOTE | 2022-07-01 08:57 | CASEMGMT ---
Addendum entered by Bruna Tenzin 07/01/22 14:38: SANGEETA CM in to pt room, pt is aware that the agency who has accepted him is [facility]. He is agreeable to their services. He is aware they will be out on Wednesday. The [facility] van is set up to take pt home at 4pm. Pt is aware and agreeable as he does not have contact info for any friends with him d/t not having his phone. [facility] nurse aware. Addendum entered by [facility] Tenzin 07/01/22 14:32: Received tc from [facility], they are able to accept pt for SOC on Wednesday. Addendum entered by [facility] 07/01/22 14:14: Received tc from [facility], they cannot accept pt. TC to [facility] to verify if they can accept, left vm. [facility] 07/01/22 12:10: [facility] declined as well as [facility]. TC to [facility] referral faxed. TC to [facility] and vm left with referral info. Addendum [facility] by [facility] 07/01/22 11:05: [facility] have declined pt. TC to [facility], requested referral to be faxed. Faxed at this time. Addendum entered by [facility] 07/01/22 10:03: Received notification that [facility] is unable to staff pt. Referral sent to remaining agencies for acceptance. Referral sent to [facility] for [facility] via careport. Original Note: TC to Isael at [facility] to confirm receipt of referral through careport. Isael will check at off and call back with answer.
[2022-07-01] MEDS: Enoxaparin 40 MG/0.4 ML Syringe SC (09:01)
[2022-07-01] MEDS: amLODIPine 10 MG Tablet PO (09:01)
--- NOTE | 2022-07-01 09:28 | DCINST_ITS ---
Discharge Instructions Diet Discharge Diet: Low fat / Low cholesterol Activity Discharge Activity: Return to Normal Activity Dressing / Incision Call your doctor if you observe: Fever of 101 or Higher, Shortness of breath, Dizziness, Fainting spells, Swelling in the ankles, Chest pain and Increased palpitations (irregular heartbeat) Follow Up Care Test Results: Test results from this visit will be discussed in further detail at your follow- up appointment, if applicable. Discharge Plan Admission Admit Date/Time: 06/29/22 11:54 Attending Provider: Nehemiah Hinkle Primary Care Provider: Wai Turner Discharge Orders/Prescriptions Prescriptions: Continued atenolol 50 mg tablet 100 mg PO QHS Label Comments: TAKE 1 TABLET BY MOUTH EVERY DAY multivitamin Tablet 1 tab PO DAILY Glucosamine Chondroitin 550-30-1 mg Capsule 1 cap PO DAILY amlodipine 10 mg tablet 10 mg PO DAILY Label Comments: TAKE 1 TABLET BY MOUTH ONCE DAILY Referrals / Follow Up: Wai Turner MD [Primary Care Provider] - Within 1 Week Disposition Disposition (needs filled in before D/C Order can be placed): Home Health Service
--- NOTE | 2022-07-01 09:42 | DS.PCM_ITS ---
Providers Date of Admission: 06/29/22 Primary Care Physician: Dr. Wai Turner MD Reason For Visit: DEBILITY Diagnosis Discharge Diagnosis (1) Debility: Status: Acute Code(s): R53.81 - Other malaise (2) Left leg pain: Status: Acute Code(s): M79.605 - Pain in left leg Medications at Discharge Home Medications atenolol 50 mg tablet 100 mg PO QHS bp 10/31/20 glucosamine sulf dipot chlr,msm,chond 550 mg-C 30 mg-fernando 1 mg capsule (Glucosamine Chondroitin) 1 cap PO DAILY supplement 10/31/20 multivitamin 1 tab PO DAILY supplement 10/31/20 amlodipine 10 mg tablet 10 mg PO DAILY 06/29/22 Hospital Course Operations None Procedures None Summary of Care Provided Minutes Spent on Discharge: 35 Hospital Course: Per HPI: JALEEL SINGH, is a 71 M who presents for to the hospital with left leg pain after a fall 7 days ago.? X-rays do not indicate a fracture however he does have significant pain with mobility in his left thigh and hamstring area.? He states that he has been essentially crawling around his house and has been having increased difficulty getting around.? Lab work is unremarkable, blood pressure is elevated likely due to pain. Hospital Course: 1. Left leg pain after a fall 7 days ago with debility and inability to complete ADLs ? Imaging is unremarkable for fracture ?He was evaluated by physical therapy and Occupational Therapy who felt that he would be safe to go home with home health care. He has agreed to this plan, I discussed with him the plan for discharge today and he expressed understanding of the risk benefits going home and would like to go home today. 2. Hypertension ? Blood pressure is a little bit elevated due to pain ? We will resume his home Norvasc and atenolol Physical Exam Narrative General: Alert, Oriented x3, Cooperative, No apparent distress HEENT: Atraumatic, PERRLA, EOMI, Normocephalic Oral: Moist Mucosa Neck: Supple, No JVD Lungs: Clear to auscultation, Normal air movement, No rhonchi, No wheeze, No rales Cardiovascular: Regular rate, Regular Rhythm, Normal S1, Normal S2, No murmurs Abdomen: Soft, Non Tender, Non-Distended, No Hepato-splenomegaly Extremities: No edema, Capillary Refill Less than 3 Seconds Skin: No rashes, No breakdown Musculoskeletal: Tenderness to palpation of his left hamstring and hip area, straight leg raise on the left is negative Neurological: Cranial nerves II-XII grossly intact, Motor Exam 5/5 strength throughout, Sensory exam intact to light touch and pain Psych/Mental Status: Normal Affect, Appropriate Weight / BMI Weight Weight: 170 lb Body Mass Index (BMI) 23.7 ABG / Lab / Microbiology Data Result Diagrams: 06/30/22 06:08 06/30/22 06:08 D/C Instructions Discharge Diet: Low fat / Low cholesterol Call your doctor if you observe: Fever of 101 or Higher, Shortness of breath, Dizziness, Fainting spells, Swelling in the ankles, Chest pain and Increased palpitations (irregular heartbeat) Meaningful Use Info Meaningful Use Diagnoses (Choose all that apply): None applicable Discharge Plan Admission Admit Date/Time: 06/29/22 11:54 Attending Provider: Nehemiah Hinkle Primary Care Provider: Wai Turner Discharge Orders/Prescriptions Prescriptions: Continued atenolol 50 mg tablet 100 mg PO QHS Label Comments: TAKE 1 TABLET BY MOUTH EVERY DAY multivitamin Tablet 1 tab PO DAILY Glucosamine Chondroitin 550-30-1 mg Capsule 1 cap PO DAILY amlodipine 10 mg tablet 10 mg PO DAILY Label Comments: TAKE 1 TABLET BY MOUTH ONCE DAILY Referrals / Follow Up: Wai Turner MD [Primary Care Provider] - Within 1 Week Disposition Disposition (needs filled in before D/C Order can be placed): Home Health S ervice Charges/Coding Visit Charges Inpatient E&M: 37769 Disch Hosp >30min
[2022-07-01 11:00] VITALS: BP 153/80; PULSE 61; RESP 16; TEMP 36.7; O2SAT 95
--- NOTE | 2022-07-01 14:44 | PHA.DC.MR ---
Pharmacy Service has performed discharge medication reconciliation for this patient. The patient's discharge medication list was reviewed for discrepancies and discrepancies were resolved. Home Medications atenolol 50 mg tablet 100 mg PO QHS bp 10/31/20 glucosamine sulf dipot chlr,msm,chond 550 mg-C 30 mg-fernando 1 mg capsule (Glucosamine Chondroitin) 1 cap PO DAILY supplement 10/31/20 multivitamin 1 tab PO DAILY supplement 10/31/20 amlodipine 10 mg tablet 10 mg PO DAILY 06/29/22
== END 2022-07-01 15:40 | disposition home health service (06) ==
LOC: ED 11:54 → MS3 06-30 10:22
PROVIDERS: Admitting Provider Family Medicine; Emergency Provider Student in an Organized Health Care Education/Training Program; PCP Family Medicine; Visit Provider Family Medicine
DX: R53.81 Other malaise (principal); M25.552 Pain in left hip; S60.511A Abrasion of right hand, initial encounter; I10 Essential (primary) hypertension; I49.3 Ventricular premature depolarization; M79.605 Pain in left leg; M79.652 Pain in left thigh; I45.10 Unspecified right bundle-branch block; F17.290 Nicotine dependence, other tobacco product, uncomplicated; Z79.899 Other long term (current) drug therapy; W19.XXXA Unspecified fall, initial encounter; Y92.89 Other specified places as the place of occurrence of the external cause
CPT/HCPCS: 36415; 71045; 72170; 73552; 80048; 80053; 82077; 84484; 85025; 93005; 96360; 96361; 96372; 97162; 97166; 99221; 99285; 99406; J7030; A4216; G0378

== ENCOUNTER 2024-06-30 16:43 | Observation (INO) | payer MEDICARE, MEDICAID, SELFPAY ==
[2024-06-30] VITALS (13 sets, daily range): BP systolic 130–190; BP diastolic 69–95; PULSE 74–88; RESP 14–96; TEMP 36.4–37; O2SAT 94–100; BMI 20.1; BMI 19.3
--- NOTE | 2024-06-30 17:08 | EKG12_ITS ---
Test Reason : GENERAL Blood Pressure : */* mmHG Vent. Rate : 78 BPM Atrial Rate : 78 BPM P-R Int : 136 ms QRS Dur : 142 ms QT Int : 428 ms P-R-T Axes : 73 254 40 degrees QTcB Int : 487 ms Normal sinus rhythm Right bundle branch block Inferior infarct , age undetermined Abnormal ECG Confirmed by RANDA HOWARD, PARIS ([id number]), news editor ISAC DREW ([id number]) on 07/03/2024 10:57:11 AM Referred By: Dwayne Johnson Confirmed By: PARIS TOLENTINO MD
--- NOTE | 2024-06-30 17:20 | RAD_ITS ---
PROCEDURE: CHEST PA AND LATERAL (RADCXR), 06/30/2024 REASON FOR EXAM: WEAKNESS TECHNIQUE: PA and lateral views of the chest were obtained. COMPARISON: 06/29/2022 FINDINGS: Heart: Unremarkable. Mediastinum: Similar contours including vascular tortuosity; unable to exclude ectasia/aneurysm. Lungs/pleura: Vague left basilar airspace disease may localize to the lower lobe on the lateral view, not present previously. No effusion or visible pneumothorax. Bones: Suspect demineralization. Multilevel spondylosis.. Lines and support devices: None. RAD/Chest PA and Lateral IMPRESSION: 1. Mild vague left basilar airspace disease may reflect atelectasis or early/mi ld pneumonia. Follow-up to radiographic resolution recommended. 2. Additional description as above. Reading Location: [id number]
[2024-06-30 17:29] LABS: Absolute Lymphocyte Count 3.44 X10^3/uL (0.83-4.51); Absolute Neutrophil Count 5.1 X10^3/uL (2.0-7.7); Basophil# 0.06 X10^3/uL; Basophil% 0.6 % (0-1); Eosinophil# 0.01 X10^3/uL; Eosinophils% 0.1 % (0-5); Hematocrit 37.3 % (40-54); Hemoglobin 12.6 g/dL (13.0-16.5); Lymphocyte # 3.44 X10^3/ul (0.83-4.51); Lymphocyte % 36.6 % (19-41); Mean Corp Hgb Conc 33.8 g/dL (32-36); Mean Corpuscular Hgb 32.1 pg (27.0-32.0); Mean Corpuscular Volume 94.9 fL (80-94); Mean Platelet Vol. 10.3 fl (6.2-12.0); Monocyte# 0.74 X10^3/uL; Monocyte% 7.9 % (0-10); NRBC Flagged by Analyzer 0 % (0-5); Neutrophil # 5.11 X10^3/uL (2.7-7.7); Neutrophil % 54.4 % (47-70); Platelet Count 169 K/mm3 (150-450); RBC Distribution Width CV 13.2 % (11.6-14.6); RBC Distribution Width SD 45.7 fl (35.1-43.9); Red Blood Count 3.93 M/mm3 (4.6-6.2); White Blood Count 9.4 K/mm3 (4.4-11.0)
[2024-06-30 17:47] LABS: ALB/GLOB Ratio 1.8 RATIO (0.9-2.4); AST(SGOT) 127 U/L (<=37); Alanine Aminotransfer ALT/SGPT 32 U/L (<=46); Alkaline Phosphatase 77 U/L (40-129); Anion Gap 15 (5-15); BUN 22 mg/dL (4-19); BUN/Creat Ratio 22.3 RATIO (10-20); Calcium,Total 9.1 mg/dL (7.6-11.0); Carbon Dioxide 20.1 mmol/L (21.0-32.0); Chloride 100 mmol/L (98-108); Creatinine, Serum 0.99 mg/dL (0.70-1.20); EST Glomerular Filtration Rate 81 (>60); Estimated Creatinine Clearance 61.47 ml/min (50-250); Globulin 2.2 g/dL (2.2-4.2); Glucose 86 mg/dL (70-99); Potassium 3.7 mmol/L (3.3-5.1); Protein, Total 6.2 g/dL (5.9-8.4); Sodium Level 135 mmol/L (133-145); Total Bilirubin 1.26 mg/dL (0.00-1.30)
--- NOTE | 2024-06-30 17:48 | EX.ED.DYSGE1 ---
HPI History of Present Illness Chief Complaint: Weakness Detail of Chief Complaint: Unable to get up out of his chair at home. Brought in by squad. Informant: patient Onset/Context/Timing Onset: Today Current Severity: Moderate Maximum Severity: Moderate Narrative Narrative: 73-year-old male history of lumbar stenosis. States that he has had 2 falls this past week 1 over the weekend and another 1 on Wednesday. States that he lives alone in an apartment. Get out of bed today 1 to his chair in his living room and was too weak to get out of of the chair. His landlord found him and called squad. He denies any illness he denies any vomiting or diarrhea. He denies any fever or cough. Just that he was too weak to get up. He is not on any blood thinners. Denies any head trauma. Prior similar symptoms: No Recent Illness/Hospitalization: No PFSH PFS Medical History Wears dentures Alcohol use Easy bruising Injury of head and neck Smoker Arthritis Degenerative disc disease Leg cramps History of stress test Hypertension Allergy/AdvReac Type Severity Reaction Status Date / Time No Known Allergies Allergy Verified 11/15/20 08:24 Family History Mother Diabetes Surgical History History of colonoscopy History of hernia repair Social History household members: none housing: house Smoking Status: Current every day smoker tobacco type: pipe other: every day since . and smokeless tobacco alcohol intake: current alcohol intake frequency: 3 or more drinks per day Alcohol type: beer substance use type: does not use what type of physical activity do you participate in: walking frequency: daily seatbelt use: always do you feel safe at home: Yes ROS ROS ED ROS Narrative Generalized weakness. Denies any recent illness. Constitutional Constitutional ED: Denies chills or fever(s) Eyes Eyes: Denies blurry vision ENT ENT ED: Denies ear pain Cardiovascular Cardiovascular: Denies chest pain Respiratory/Chest Respiratory/Chest: Denies cough or dyspnea Gastrointestinal Gastrointestinal: Denies abdominal pain or constipation Genitourinary Genitourinary ED: Denies dysuria or hematuria Musculoskeletal Musculoskeletal: Denies arthralgias or back pain Integumentary Denies abscess Neurologic Neurologic: Denies headache(s) Psychiatric Psychiatric: Denies anxiety or depression Endocrine Endocrinology: Denies cold intolerance Hematologic/Lymphatic Hematologic/Lymphatic: Reports none Allergic/Immunologic Allergic/Immunologic ED: Denies mouth swelling, tongue swelling or urticaria EXAM Physical Exam Narrative Exam Narrative: Well-appearing 73-year-old male. Sitting upright in bed. Vital signs are stable afebrile. Pulse ox 98% on room air no hypoxia. H EENT exam. Pupils are round and reactive light. He has in abrasion to his mid forehead between his eyes. Also some bruising below his right eye said that happened he fell earlier in the week. Neck nontender. Trachea nontender. C-spine nontender. Back nontender. Lungs clear to auscultation bilaterally. Heart regular rhythm rate about 80 no murmur. Chest wall ribs nontender. Abdomen soft nontender. Moving all 4 extremities. He can lift the legs but then generally weak. Is feet and toenails are unkept. His upper extremities are nontender normal resource coordinator strength. He can raise both hands off the bed. Neurologically is awake alert. Answer questions following commands. He just has a generalized weakness but not necessarily focal. Const Vital Signs: 06/30/24 16:45 06/30/24 16:57 06/30/24 17:33 Temperature 98.6 F Temperature Source Oral Pulse Rate 79 76 Respiratory Rate 96 H 16 Respiratory Effort Normal Non-Labored Respiratory Pattern Normal Blood Pressure 172/91 H Blood Pressure Mean 118 Pulse Ox 98 97 Oxygen Delivery Method Room Air 06/30/24 17:45 06/30/24 18:00 06/30/24 18:00 Temperature 98.1 F Temperature Source Oral Pulse Rate 74 88 75 Respiratory Rate 14 20 H 14 Respiratory Effort Respiratory Pattern Blood Pressure 167/92 H 167/92 H Blood Pressure Mean 112 117 Pulse Ox 97 97 97 Oxygen Delivery Method Room Air 06/30/24 18:15 06/30/24 18:30 06/30/24 18:45 Temperature Temperature Source Pulse Rate 85 Respiratory Rate 28 H Respiratory Effort Respiratory Pattern Blood Pressure Blood Pressure Mean Pulse Ox 98 97 Oxygen Delivery Method Positive well nourished and well developed; Negative for obese, cachectic, contractures or unkempt General Appearance ED: well developed; Negative for unkempt, cachectic, contractures, cyanotic, diaphoretic or pallor Nutritional Appearance: Negative for cachectic or obese HEENT Reports dry mucous membranes Negative for tenderness Mouth ED: Yes dry mucous membranes Mouth: dry mucous membranes Eyes PERRL and EOMs intact bilaterally General Eye ED: Negative for pale conjunctiva or scleral icterus Neck no lymphadenopathy, supple and no JVD General: Negative for tenderness Lymph Lymphatic: Negative for other Chest Wall inspection of chest normal and palpation of chest normal Resp normal respiratory effort and clear to auscultation bilaterally Effort and Inspection: Negative for retractions or pain with movement Auscultation: Negative for rales, rhonchi or wheezes Cardio regular rate, regular rhythm, S1 normal heart sound, S2 normal heart sound and no murmurs GI normal to inspection, nondistended, normoactive bowel sounds, non-tender, non-distended and no masses Palpation: soft; Negative for tender, guarding or rebound tenderness present Back/Spine no CVA tenderness General Back: Negative for CVA tenderness Cervical Spine: Negative for cervical spine tenderness Thoracic Spine / Upper Back: Negative for thoracic spinal tenderness or paraspinal muscle tenderness Lumbar Spine / Lower Back: Negative for lumbar spinal tenderness Extremity normal to inspection Extremity Narrative: Generalized weakness all 4 extremities. More so in the lower extremities. He can lift his right leg off the bed the left he has more trouble with. Unkept feet and toenails. General Extremety ED: Negative for edema or tenderness General Extremity: Negative for edema Neuro oriented x3 and CN's II-XII intact bilaterally Sensorium / Orientation: alert; Negative for orientation impaired, lethargic or stuporous Motor Exam: general weakness Psych mental status grossly normal Appearance: Negative for unkempt Attitude: No agitated Mood & Affect: Negative for depressed, anxious or tearful Skin no rashes or lesions noted, no wounds and skin turgor normal General Skin Exam: Negative for jaundice or pallor Lesions: No lesion noted Rashes: No rashes noted Trauma: Negative for abrasion Wounds: Negative for wounds noted MDM MDM MDM Narrative Medical decision making narrative: 73-year-old male generalized weakness unable to get out of a chair. Could be from underlying illness, Viral syndrome,, bacterial infection, is lumbar stenosis excetra. There is no cauda equina. Screening labs to be obtained. Treated with IV fluids for clinically looks mildly dehydrated. Repeat exam at 6:52 PM no significant change. Patient could stand but was unable to walk because he was too weak and started to fall so he was put back in bed. He was very unsteady on his feet. History & Record Review Discussion w/independent historian: Patient Additional record(s) reviewed:: Prior inpatient record, Prior outpatient record, Prior ED visit and Prior labs Lab Data Attestation: I reviewed the patient's lab results. Lab results narrative: CBC shows a white count 9.4. H&H 12.6 and 37. Platelets 169. Electrolytes show gap 15. BUN 22 creatinine 0.9. Glucose 86 liver enzymes unremarkable other than AST of 127. Chest x-ray chronic changes. No pneumonia. Labs: Laboratory Results - last 24 hr 06/30/24 16:56 WBC 9.4 RBC 3.93 L Hgb 12.6 L Hct 37.3 L MCV 94.9 H MCH 32.1 H MCHC 33.8 RDW Std Deviation 45.7 H RDW Coeff of Gracy 13.2 Plt Count 169 MPV 10.3 Immature Gran % (Auto) 0.400 Neut % (Auto) 54.4 Lymph % (Auto) 36.6 [place] % (Auto) 7.9 Eos % (Auto) 0.1 Baso % (Auto) 0.6 Absolute Neuts (auto) 5.1 Absolute Lymphs (auto) 3.44 Nucleated RBC % 0 Sodium 135 Potassium 3.7 Chloride 100 Carbon Dioxide 20.1 L Anion Gap 15 BUN 22 H Creatinine 0.99 Estim Creat Clear Calc 61.47 Est GFR (MDRD) Non-Af 81 BUN/Creatinine Ratio 22.3 H Glucose 86 Calcium 9.1 Total Bilirubin 1.26 AST 127 H ALT 32 Alkaline Phosphatase 77 Total Protein 6.2 Albumin 4.0 Globulin 2.2 Albumin/Globulin Ratio 1.8 Radiography Chest X-Ray - ED: Read by ED Physician, Heart, Lungs, Mediastinum, Bony Structures, No Acute Disease and Chronic Changes Diagnostic Testing: Clinical Impression(s) from Imaging Studies Chest X-Ray 06/30/24 17:20 IMPRESSION: 1. Mild vague left basilar airspace disease may reflect atelectasis or early/mild pneumonia. Follow-up to radiographic resolution recommended. 2. Additional description as above. Reading Location: [facility] Chest x-ray, 2 views, AP and lateral, interpreted by myself shows chronic changes no acute process. Normal mediastinum. Normal cardiac silhouette. Normal lung perry. Left hip and pelvis x-ray 3 views interpreted by myself shows no acute fracture. No dislocation. Rhythm Strip Rhythm Strip: Sinus Rhythm Rate: 78 Ectopy: None EKG Initial EKG: Interpretation: Sinus Rhythm and No Acute Injury Pattern Comments: Normal sinus rhythm rate of 78 no acute signs of LA or ischemia. Right bundle branch block. Discharge Plan Dx/Rx/DC Orders Clinical Impression: Generalized weakness, Unable to ambulate, Hx of spinal stenosis Disposition Disposition: Acute Care Hospital [facility]
[2024-06-30] MEDS: 0.9% Normal Saline (1000mL) 1,000 ML 999 ML IV (18:00)
--- NOTE | 2024-06-30 18:00 | RAD_ITS ---
PROCEDURE: HIP, UNI W/ PELVIS 2-3 VIEWS ([facility]), 06/30/2024 REASON FOR EXAM: FALL TECHNIQUE: AP and lateral views of the left hip as well as an AP view of the entire pelvis were obtained. COMPARISON: None FINDINGS: Fracture/dislocation: None visible. Joint space(s): Mild hip joint space narrowing. Soft tissues: Presumed pelvic phleboliths. Foreign bodies: None visible. Bone mineralization: Demineralization. Other: Lumbar spondylosis and levoscoliosis, minimally imaged and not well evaluated. RAD/HIP, UNI W/ Pelvis 2-3 Views IMPRESSION: 1. Demineralization without visible acute displaced fracture. If there is pers istent concern or if the patient is unable to bear weight, recommend CT, as nondisplaced fractures may be radiographically occult in the setting of demineralization. 2. Additional description as above. Reading Location: [id number]
--- NOTE | 2024-06-30 19:20 | PCM.HP.STD ---
[facility] General General Date of Admission: 06/30/24 Date of Service: 06/30/24 Chief Complaint: Generalized Weakness with Inability to Ambulate. HPI Narrative JALEEL MALAVE, is a 73 M with a past medical history of essential hypertension; currently not on treatment, history of tobacco abuse, history of EtOH abuse; with subsequent Wernicke-Korsakoff syndrome (alcoholic), history of DDD and lumbar spinal stenosis; with ambulatory dysfunction and frequent falls, OA and history of admission here from June 29, 2022 to July 01, 2022 for treatment of acute debility with acute pain and left leg after fall 1 week prior to that admission who presents to [facility] ER complaining of generalized weakness with inability to ambulate. Mr. Malave reports his symptoms began approximately 2 weeks prior to admission with 2 falls over the weekend followed by another fall on Thursday, June 27, 2024. He states that he lives at home alone in an apartment but was too weak to get out of his chair. His landlord then found him and activated EMS. He denies any recent illness, fever, chills, nausea, vomiting, dysuria, chest pain, shortness of breath, headache, slurred speech or other focal neurologic deficits. In the ER he was diagnosed with generalized weakness with ambulatory dysfunction in the setting of frequent falls with unremarkable laboratory tests and imaging and he was then admitted to the general medical floor for ongoing care for status expected to be less than 2 midnights. [facility] Medical History Wears dentures Alcohol use Easy bruising Injury of head and neck Smoker Arthritis Degenerative disc disease Leg cramps History of stress test Hypertension Allergy/AdvReac Type Severity Reaction Status Date / Time No Known Allergies Allergy Verified 11/15/20 08:24 Family History Mother Diabetes Surgical History History of colonoscopy History of hernia repair Social History household members: none housing: house Smoking Status: Current every day smoker tobacco type: pipe other: every day since . and smokeless tobacco alcohol intake: current alcohol intake frequency: 3 or more drinks per day Alcohol type: beer substance use type: does not use what type of physical activity do you participate in: walking frequency: daily seatbelt use: always do you feel safe at home: Yes ROS ROS Narrative Review of Systems: Constitutional: Patient admits to generalized weakness but he denies fever or chills. Eyes: Patient denies changes in vision or discharge from eyes. ENT: Patient denies runny nose, sore throat or ear pain. Resp: Patient denies shortness of breath or cough. CV: Patient denies chest pain, palpitations, heart racing or lower extremity edema. GI: Patient denies abdominal pain, nausea, vomiting, diarrhea or constipation. : Patient denies dysuria, hematuria or urinary frequency. MSK: Patient denies arthralgias or myalgias. Skin: Patient admits to bruising over his Right buttock and Left nasal region but he denies rash, abscess, wounds or jaundice. Psych: Patient denies symptoms of uncontrolled depression or anxiety. Neuro: Patient admits to generalized weakness with ambulatory dysfunction but he denies paresthesias or lateralizing focal neurologic deficits. Allergy: Patient denies lip swelling, tongue swelling or urticaria. Hematology: Patient denies easy bleeding or easy bruisability. Endocrinology: Patient denies polyuria, polydipsia or polyphagia. 14 point ROS otherwise negative save for positives noted above in HPI. Vital Signs Vital Signs Vital Signs: 06/30/24 16:45 06/30/24 16:57 06/30/24 17:33 Temperature 98.6 F Temperature Source Oral Pulse Rate 79 76 Respiratory Rate 96 H 16 Respiratory Effort Normal Non-Labored Respiratory Pattern Normal Blood Pressure 172/91 H Blood Pressure Mean 118 Pulse Ox 98 97 Oxygen Delivery Method Room Air 06/30/24 17:45 06/30/24 18:00 06/30/24 18:00 Temperature 98.1 F Temperature Source Oral Pulse Rate 74 88 75 Respiratory Rate 14 20 H 14 Respiratory Effort Respiratory Pattern Blood Pressure 167/92 H 167/92 H Blood Pressure Mean 112 117 Pulse Ox 97 97 97 Oxygen Delivery Method Room Air 06/30/24 18:15 06/30/24 18:30 06/30/24 18:45 Temperature Temperature Source Pulse Rate 85 Respiratory Rate 28 H Respiratory Effort Respiratory Pattern Blood Pressure Blood Pressure Mean Pulse Ox 98 97 Oxygen Delivery Method 06/30/24 19:00 Temperature 97.5 F L Temperature Source Oral Pulse Rate 77 Respiratory Rate 20 H Respiratory Effort Respiratory Pattern Blood Pressure 175/75 H Blood Pressure Mean 108 Pulse Ox 94 Oxygen Delivery Method Room Air Weight Weight: 144 lb 2.917 oz Body Mass Index (BMI) 20.1 Physical Exam Const alert, oriented x3, no apparent distress and average body habitus General Appearance: cooperative HEENT normocephalic, head/scalp atraumatic and hearing grossly normal bilaterally HEENT Narrative: Mucous membranes dry. Eyes PERRL, EOMs intact bilaterally and conjunctivae normal Neck no lymphadenopathy, supple and no JVD Resp normal respiratory effort, no retractions, no use of accessory muscles and clear to auscultation bilaterally Cardio regular rate and regular rhythm GI normal to inspection, nondistended, normoactive bowel sounds, soft to palpation, non-tender and non-distended Extremity normal to inspection, full ROM and no clubbing, cyanosis or edema Skin Skin Narrative: Patient has bruising over Right buttock and abrasion on forehead but he has no evidence of rash, abscess, wounds or jaundice. Neuro oriented x3, CN's II-XII intact bilaterally, moves all extremities and no focal motor deficits Neuro Narrative: Patient is able to stand up with assistance but not able to ambulate. Sensorium / Orientation: awake, alert, oriented to person, oriented to place and oriented to time Speech: speech normal Psych affect normal Results Medical Records Data Attestation: I reviewed the patient's medical records Lab / Micro Data Attestation: I reviewed the patient's lab results. 06/30/24 16:56 06/30/24 16:56 Labs: Laboratory Results - last 24 hr 06/30/24 16:56: WBC 9.4, RBC 3.93 L, Hgb 12.6 L, Hct 37.3 L, MCV 94.9 H, MCH 32.1 H, MCHC 33.8, RDW Std Deviation 45.7 H, RDW Coeff of Gracy 13.2, Plt Count 169, MPV 10.3, Immature Gran % (Auto) 0.400, Neut % (Auto) 54.4, Lymph % (Auto) 36.6, [place] % (Auto) 7.9, Eos % (Auto) 0.1, Baso % (Auto) 0.6, Absolute Neuts (auto) 5.1, Absolute Lymphs (auto) 3.44, Nucleated RBC % 0, Sodium 135, Potassium 3.7, Chloride 100, Carbon Dioxide 20.1 L, Anion Gap 15, BUN 22 H, Creatinine 0.99, Estim Creat Clear Calc 61.47, Est GFR (MDRD) Non-Af 81, BUN/Creatinine Ratio 22.3 H, Glucose 86, Calcium 9.1, Total Bilirubin 1.26, AST 127 H, ALT 32, Alkaline Phosphatase 77, Total Protein 6.2, Albumin 4.0, Globulin 2.2, Albumin/Globulin Ratio 1.8 Micro: Microbiology 06/30/24 17:19 Mucosa - Nose SARS-CoV-2, Influenza & RSV (PCR) - Final Rhythm Strip Rhythm Strip: Sinus Rhythm Rate: 78 Ectopy: None Imaging Radiology Impression Chest X-Ray 06/30/24 17:20 IMPRESSION: 1. Mild vague left basilar airspace disease may reflect atelectasis or early/mild pneumonia. Follow-up to radiographic resolution recommended. 2. Additional description as above. Reading Location: [facility] Hip/Pelvis X-Ray 06/30/24 18:00 IMPRESSION: 1. Demineralization without visible acute displaced fracture. If there is persistent concern or if the patient is unable to bear weight, recommend CT, as nondisplaced fractures may be radiographically occult in the setting of demineralization. 2. Additional description as above. Reading Location: [id number] Imaging Services [address] [place] [id number] Chest without Contrast MR#: [id number] Acct: [id number] Name: JALEEL MALAVE Rep #: [id number] : 1950 M 73 From: David Werner MD PCP: Dr. Wai Turner MD Status: ADM VICTORINA Study: Chest without Contrast Date of Exam: 06/30/24 Exam# [id number] Ordering Dr: Dwayne Johnson DO PROCEDURE: CHEST WITHOUT CONTRAST 06/30/2024 REASON FOR EXAM: SUSPECTED PNA ON CXR. TECHNIQUE: Chest CT without contrast. Coronal and Sagittal reconstruction series were provided. One or more dose reduction techniques were used (e.g., Automated exposure control, adjustment of the mA and/or kV according to patient size, use of iterative reconstruction technique COMPARISON: None. RADIATION DOSE SUMMARY: CTDlvol: 12.53 mGy DLP: 497.95 mGycm FINDINGS: Motion artifact. The central airways appear patent. Mild dependent atelectasis. No focal consolidation. No pneumothorax or pleural effusion. Undulating descending thoracic aorta without aneurysm. Atherosclerotic calcifications. LAD coronary calcification. No pericardial or pleural effusion. Multilevel spondylosis/discogenic change visualized cervical and thoracic spine. Severe disc space narrowing, endplate irregularity, ekjn-eo-dpea contact, heterogeneous vertebral sclerotic changes T9-10 may be degenerative with possibility of acute or chronic discitis osteomyelitis not entirely excluded, clinically correlate. Nonacute appearing T8 compression deformity. Nonacute appearing T12 compression deformity. Rightward curvature. Bilateral shoulder degenerative change Atherosclerotic vascular calcifications. Focal heavy appearing calcification at the left subclavian artery for example coronal [address]/Chest without Contrast IMPRESSION: The central airways appear patent. Mild dependent atelectasis. No focal consolidation. No pneumothorax or pleural effusion. Reading Location: [facility] CC: Dr. Dwayne Johnson DO; Dr. Wai Turner MD ~ Bottle Inspector: Signed Assessment & Plan Assessment/Plan (1) Generalized weakness: (2) Ambulatory dysfunction: (3) Spinal stenosis of lumbar region at multiple levels: (4) DDD (degenerative disc disease): QUALIFIERS: Disc-related pain type: discogenic back pain and lower extremity pain Spinal region: lumbosacral Qualified Code(s): M51.372 - Other intervertebral disc degeneration, lumbosacral region with discogenic back pain and lower extremity pain (5) Osteoarthritis: QUALIFIERS: Osteoarthritis location: spine Spinal osteoarthritis complication: unspecified spinal osteoarthritis Spinal region: unspecified Qualified Code(s): M47.9 - Spondylosis, unspecified (6) Left leg pain: (7) Wernicke-Korsakoff syndrome (alcoholic): PLAN: Plan 1. Generalized Weakness with Ambulatory Dysfunction due to Frequent Falls with Left Leg Pain - Admit to general medical floor under observation status. Give acetaminophen as needed for [id number]-[id number] (level 1-5/10) pain or fever. Give morphine IV as needed for severe (level 6-10/10) pain. Finally, we will consult PT/OT and case management to see patient on rounds in a.m. for further recommendations as he may like require ECF placement with help appreciated in advance. 2. History of OA, DDD and lumbar spinal stenosis; with history of difficult ambulation and frequent falls complicating #1 - Check MRI of lumbar spine in AM to evaluate current severity of lumbar spinal stenosis. 3. History of admission here from June 29, 2022 to July 01, 2022 for treatment of acute debility with acute pain and left leg after fall 1 week prior to that admission compounding #1 & #2 - Noted. 4. History of EtOH abuse; with subsequent Wernicke-Korsakoff syndrome (alcoholic) adding to the medical complexity of #1 - #3 - Patient denies current alcohol abuse with a YOKO less than 10.1 mg/dL present on admission. I personally spoke with med-vascular surgeon who also confirmed patient denies current alcohol abuse. He should be watched closely for signs of withdrawal and phenobarbital taper should be initiated if withdrawal symptoms develop. 5. History of tobacco abuse - Tobacco Cessation will be strongly encouraged with nicotine patch however to control cravings. 6. Essential Hypertension; currently not on treatment - Patient will be started on amlodipine 5 mg p.o. daily plus will give as needed IV hydralazine for systolic blood pressure greater than 160 mmHg. 7. DVT prophylaxis - Lovenox 40 mg sq daily. Total time: Approximately (but not less than) 70 minutes. Charges/Coding Visit Charges OBSV E&M: 66387 Observ/hosp same date L2
--- NOTE | 2024-06-30 19:30 | CT_ITS ---
PROCEDURE: CHEST WITHOUT CONTRAST 06/30/2024 REASON FOR EXAM: SUSPECTED PNA ON CXR. TECHNIQUE: Chest CT without contrast. Coronal and Sagittal reconstruction series were provided. One or more dose reduction techniques were used (e.g., Automated exposure control, adjustment of the mA and/or kV according to patient size, use of iterative reconstruction technique COMPARISON: None. RADIATION DOSE SUMMARY: CTDlvol: 12.53 mGy DLP: 497.95 mGycm FINDINGS: Motion artifact. The central airways appear patent. Mild dependent atelectasis. No focal consolidation. No pneumothorax or pleural effusion. Undulating descending thoracic aorta without aneurysm. Atherosclerotic calcifications. LAD coronary calcification. No pericardial or pleural effusion. Multilevel spondylosis/discogenic change visualized cervical and thoracic spine. Severe disc space narrowing, endplate irregularity, [id number] contact, heterogeneous vertebral sclerotic changes T9-10 may be degenerative with possibility of acute or chronic discitis osteomyelitis not entirely excluded, clinically correlate. Nonacute appearing T8 compression deformity. Nonacute appearing T12 compression deformity. Rightward curvature. Bilateral shoulder degenerative change Atherosclerotic vascular calcifications. Focal heavy appearing calcification at the left subclavian artery for example coronal [address]/Chest without Contrast IMPRESSION: The central airways appear patent. Mild dependent atelectasis. No focal consol idation. No pneumothorax or pleural effusion. Reading Location: [id number]
[2024-06-30 20:14] LABS: Hemoglobin A1c 5.3 % (<=5.6)
[2024-06-30] MEDS: hydrALAZINE 20 MG/ML Vial 10 MG IV (20:26)
[2024-06-30] MEDS: 0.9% Normal Saline (1000mL) 1,000 ML 50 ML IV (20:27)
[2024-06-30 20:30] LABS: Magnesium 1.8 mg/dL (1.5-2.2)
[2024-06-30 21:06] LABS: Vitamin B12 440 pg/mL (180-914)
[2024-06-30 22:24] LABS: Alcohol, Blood (Medical)-Serum < 10.1 mg/dL (<=10.0)
[2024-07-01] VITALS (8 sets, daily range): BP systolic 150–173; BP diastolic 78–105; PULSE 67–84; RESP 14–16; TEMP 36.4–36.9; O2SAT 95–98; BMI 19.8
[2024-07-01 06:35] LABS: Color, Urine Yellow (Yellow); Glucose, Dipstick Normal (Normal); Ketone-Dipstick 50 mg/dl (Negative); Leukocyte Esterase-Dipstick Negative /ul (Negative); Nitrite-Dipstick Negative (Negative); Occult Blood-Urine 10 /ul (Negative); Protein-Dipstick 30 mg/dl (Negative); Urine Clarity Clear (Clear); Urine Urobilinogen 1 mg/dl (Normal)
--- NOTE | 2024-07-01 06:42 | NURSING ---
pt denies that he currently drinks alcohol; will continue to monitor for symptoms of withdrawl; aware
[2024-07-01 06:57] LABS: Urine Bilirubin Dipstick 1 mg/dL (Negative)
[2024-07-01 07:00] LABS: Bacteria 1+ /hpf (None Seen); Mucous, Urine 1+ /hpf (<or=2+); Red Blood Cells-Urine 0 SEEN /hpf (0-5); Squamous Epithelial Cells - UA 0-5 SEEN /hpf (0-5); White Blood Cells 0-5 SEEN /hpf (0-5)
[2024-07-01 07:03] LABS: Amphetamine Urine NEGATIVE (<1000 ng/mL); Barbiturate Urine NEGATIVE (< 200 ng/mL); Benzodiazepine Urine NEGATIVE (< 200 ng/mL); Buprenorphine Urine NEGATIVE (< 200 ng/mL); Cocaine Urine NEGATIVE (< 300 ng/mL); Fentanyl, Urine NEGATIVE; Methadone Urine NEGATIVE (< 300 ng/mL); Opiates Urine NEGATIVE (< 300 ng/mL); Oxycodone, Urine NEGATIVE (< 100 ng/mL); PCP Urine NEGATIVE (< 25 ng/mL); THC Urine NEGATIVE (< 50 ng/mL)
[2024-07-01 07:19] LABS: Absolute Lymphocyte Count 3.18 X10^3/uL (0.83-4.51); Absolute Neutrophil Count 4.6 X10^3/uL (2.0-7.7); Basophil# 0.07 X10^3/uL; Basophil% 0.8 % (0-1); Eosinophil# 0.07 X10^3/uL; Eosinophils% 0.8 % (0-5); Hematocrit 37.5 % (40-54); Hemoglobin 12.5 g/dL (13.0-16.5); Lymphocyte # 3.18 X10^3/ul (0.83-4.51); Lymphocyte % 37.2 % (19-41); Mean Corp Hgb Conc 33.3 g/dL (32-36); Mean Corpuscular Hgb 32.2 pg (27.0-32.0); Mean Corpuscular Volume 96.6 fL (80-94); Mean Platelet Vol. 9.2 fl (6.2-12.0); Monocyte# 0.62 X10^3/uL; Monocyte% 7.3 % (0-10); NRBC Flagged by Analyzer 0 % (0-5); Neutrophil # 4.58 X10^3/uL (2.7-7.7); Neutrophil % 53.7 % (47-70); POSITIVE MORPHOLOGY YES; Platelet Count 141 K/mm3 (150-450); RBC Distribution Width CV 13.4 % (11.6-14.6); RBC Distribution Width SD 48.2 fl (35.1-43.9); Red Blood Count 3.88 M/mm3 (4.6-6.2); White Blood Count 8.5 K/mm3 (4.4-11.0)
[2024-07-01 08:27] LABS: Differential Indicated SCAN CRITERIA MET
[2024-07-01 08:54] LABS: ALB/GLOB Ratio 1.6 RATIO (0.9-2.4); AST(SGOT) 89 U/L (<=37); Alanine Aminotransfer ALT/SGPT 26 U/L (<=46); Albumin, Serum 3.5 g/dL (3.4-4.8); Alkaline Phosphatase 71 U/L (40-129); Anion Gap 11 (5-15); BUN 21 mg/dL (4-19); BUN/Creat Ratio 23.4 RATIO (10-20); Calcium,Total 8.6 mg/dL (7.6-11.0); Carbon Dioxide 21.8 mmol/L (21.0-32.0); Chloride 105 mmol/L (98-108); Cholesterol 113 mg/dL (<=200); Creatinine, Serum 0.92 mg/dL (0.70-1.20); EST Glomerular Filtration Rate 88 (>60); Estimated Creatinine Clearance 64.94 ml/min (50-250); Globulin 2.2 g/dL (2.2-4.2); Glucose 82 mg/dL (70-99); High Density Lipoprotein 66 mg/dL; Low Density Lipoprotein Calc. 36 mg/dL; Potassium 3.8 mmol/L (3.3-5.1); Protein, Total 5.7 g/dL (5.9-8.4); Sodium Level 138 mmol/L (133-145); Total Bilirubin 0.85 mg/dL (0.00-1.30); Triglycerides 53 mg/dL; Very Low Density Lipoprotein 11 mg/dL (5-40); cholesterol:hdl ratio screen 1.71
[2024-07-01] MEDS: amLODIPine 5 MG Tablet PO (08:59)
[2024-07-01] MEDS: Enoxaparin 40 MG/0.4 ML Syringe SC (09:00)
[2024-07-01 10:01] LABS: Platelet Estimate SLT DEC (ADEQ)
[2024-07-01 11:32] LABS: FOLATES,SERUM (FOLIC ACID) 5.33 ng/mL (4.60-34.80)
--- NOTE | 2024-07-01 14:21 | PCM.PROGNOTE ---
Subjective Subjective Patient seen and examined. He had no complaints. Review of systems is otherwise negative. He came in with a complaint of weakness and for placement. He has remained hemodynamically stable. Objective Data Objective Data Vital Signs: Vital Signs Temp Pulse Resp BP Pulse Ox O2 Del Method 97.5 F L 77 14 173/86 H 97 Room Air 07/01/24 08:52 07/01/24 08:52 07/01/24 08:52 07/01/24 08:52 07/01/24 08:52 07/01/24 10:42 Oxygen Delivery Method Room Air Weight: 141 lb 8.588 oz Body Mass Index (BMI) 19.8 Intake & Output: Intake and Output for Last 24 Hours 06/29/24 06/30/24 07/01/24 23:59 23:59 23:59 Intake Total 1200 / 1200 250 / 250 Output Total 300 / 300 Balance 1200 / 1200 -50 / -50 Lab / Micro Data 07/01/24 06:44 07/01/24 06:44 Labs: Laboratory Results - last 24 hr 06/30/24 16:56: WBC 9.4, RBC 3.93 L, Hgb 12.6 L, Hct 37.3 L, MCV 94.9 H, MCH 32.1 H, MCHC 33.8, RDW Std Deviation 45.7 H, RDW Coeff of Gracy 13.2, Plt Count 169, MPV 10.3, Immature Gran % (Auto) 0.400, Neut % (Auto) 54.4, Lymph % (Auto) 36.6, Mcdonald % (Auto) 7.9, Eos % (Auto) 0.1, Baso % (Auto) 0.6, Absolute Neuts (auto) 5.1, Absolute Lymphs (auto) 3.44, Nucleated RBC % 0, Sodium 135, Potassium 3.7, Chloride 100, Carbon Dioxide 20.1 L, Anion Gap 15, BUN 22 H, Creatinine 0.99, Estim Creat Clear Calc 61.47, Est GFR (MDRD) Non-Af 81, BUN/Creatinine Ratio 22.3 H, Glucose 86, Hemoglobin A1c 5.3 L, Calcium 9.1, Phosphorus 3.0, Magnesium 1.8, Total Bilirubin 1.26, AST 127 H, ALT 32, Alkaline Phosphatase 77, Total Protein 6.2, Albumin 4.0, Globulin 2.2, Albumin/Globulin Ratio 1.8, Vitamin B12 440 06/30/24 21:26: Ethyl Alcohol < 10.1 06/30/24 21:36: Serum Folate Cancelled 07/01/24 06:12: Urine Color Yellow, Urine Clarity Clear, Urine pH 6.0, Ur Specific [place] 1.020, Urine Protein 30 H, Urine Glucose (UA) Normal, Urine Ketones 50 H, Urine Occult Blood 10 H, Urine Nitrite Negative, Urine Bilirubin 1 H, Urine Urobilinogen 1 H, Ur Leukocyte Esterase Negative, Urine RBC 0 SEEN, Urine WBC 0-5 SEEN, Ur Squamous Epith Cells 0-5 SEEN, Urine Bacteria 1+, Urine Mucus 1+, Urine Opiates Screen NEGATIVE, U Buprenorphine Qual NEGATIVE, Ur Oxycodone Screen NEGATIVE, Urine Methadone Screen NEGATIVE, Urine Fentanyl Screen NEGATIVE, Ur Barbiturates Screen NEGATIVE, Ur Phencyclidine Scrn NEGATIVE, Ur Amphetamines Screen NEGATIVE, U Benzodiazepines Scrn NEGATIVE, Urine Cocaine Screen NEGATIVE, U Cannabinoids Screen NEGATIVE 07/01/24 06:44: WBC 8.5, RBC 3.88 L, Hgb 12.5 L, Hct 37.5 L, MCV 96.6 H, MCH 32.2 H, MCHC 33.3, RDW Std Deviation 48.2 H, RDW Coeff of Gracy 13.4, Plt Count 141 L, MPV 9.2, Immature Gran % (Auto) 0.200, Neut % (Auto) 53.7, Lymph % (Auto) 37.2, Mcdonald % (Auto) 7.3, Eos % (Auto) 0.8, Baso % (Auto) 0.8, Absolute Neuts (auto) 4.6, Absolute Lymphs (auto) 3.18, Nucleated RBC % 0, Platelet Estimate SLT DEC, Sodium 138, Potassium 3.8, Chloride 105, Carbon Dioxide 21.8, Anion Gap 11, BUN 21 H, Creatinine 0.92, Estim Creat Clear Calc 64.94, Est GFR (MDRD) Non-Af 88, BUN/Creatinine Ratio 23.4 H, Glucose 82, Calcium 8.6, Total Bilirubin 0.85, AST 89 H, ALT 26, Alkaline Phosphatase 71, Total Protein 5.7 L, Albumin 3.5, Globulin 2.2, Albumin/Globulin Ratio 1.6, Triglycerides 53, Cholesterol 113, LDL Cholesterol, Calc 36, VLDL Cholesterol 11, HDL Cholesterol 66, Cholesterol/HDL Ratio 1.71, Serum Folate 5.33, TSH 1.980 Micro: Microbiology 06/30/24 17:19 Mucosa - Nose SARS-CoV-2, Influenza & RSV (PCR) - Final Radiography Diagnostic Testing: Radiology Impression Chest X-Ray 06/30/24 17:20 IMPRESSION: 1. Mild vague left basilar airspace disease may reflect atelectasis or early/mild pneumonia. Follow-up to radiographic resolution recommended. 2. Additional description as above. Reading Location: [facility] Hip/Pelvis X-Ray 06/30/24 18:00 IMPRESSION: 1. Demineralization without visible acute displaced fracture. If there is persistent concern or if the patient is unable to bear weight, recommend CT, as nondisplaced fractures may be radiographically occult in the setting of demineralization. 2. Additional description as above. Reading Location: [facility] Chest CT 06/30/24 19:30 IMPRESSION: The central airways appear patent. Mild dependent atelectasis. No focal consolidation. No pneumothorax or pleural effusion. Reading Location: [facility] Lumbar Spine MRI 07/01/24 19:30 IMPRESSION: 1. Acquired multilevel spinal stenosis, severe at L3-4 and L4-5. 2. Acquired moderate to severe multilevel foraminal narrowing. See level by level comments above. 3. Moderate levoscoliosis. 4. Chronic compression fracture of T12. Reading Location: [facility] Rhythm Strip Rhythm Strip: Sinus Rhythm Rate: 78 Ectopy: None Physical Exam Const alert, oriented x3 and no apparent distress General Appearance: cooperative HEENT normocephalic, head/scalp atraumatic, moist oral mucous membranes and oropharynx normal Eyes PERRL and EOMs intact bilaterally Neck no lymphadenopathy and supple Lymph Lymphatic: no lymphadenopathy noted Resp normal respiratory effort, normal air movement and clear to auscultation bilaterally Cardio regular rate, regular rhythm, S1 normal heart sound, S2 normal heart sound and no murmurs GI normal to inspection, nondistended, normoactive bowel sounds, soft to palpation, non-tender and non-distended Extremity normal capillary refill, no clubbing, cyanosis or edema and no calf tenderness General Extremity: no tenderness to palpation of joints or extremities Skin General Skin Exam: no breakdown Neuro CN's II-XII intact bilaterally, no focal motor deficits and no sensory deficits noted Motor Exam: strength 5/5 throughout and general weakness Psych thought process normal and cooperative Appearance: appropriate Assessment & Plan Assessment/Plan (1) DDD (degenerative disc disease): QUALIFIERS: Spinal region: lumbosacral Disc-related pain type: discogenic back pain and lower extremity pain Qualified Code(s): M51.372 - Other intervertebral disc degeneration, lumbosacral region with discogenic back pain and lower extremity pain (2) Generalized weakness: PLAN: Plan #Debility and weakness with failure to thrive Patient admitted with complaint of profound weakness and frequent falls with failure to thrive at home. MRI of the lumbar spine ordered. PT OT on board. For precautions. Patient will benefit from placement. Hip and pelvic x-ray showed demineralization without visible acute displaced fracture #History of osteoarthritis with lumbar stenosis: MRI of the lumbar spine ordered to further evaluate this showed acquired multilevel spinal stenosis with moderate to severe multilevel foraminal narrowing and chronic compression fracture of T12 as well as moderate levoscoliosis PT OT on board. On p.o. Tylenol and oxycodone as needed for pain Will benefit from follow-up with pain management and spine surgery on outpatient basis. 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 PT OT on board. #Thrombocytopenia: Platelets 141 today. Was 169 yesterday. Will monitor closely and if continues to drop will consider discontinuing Lovenox. # Abnormal urinalysis: Urinalysis showed 1+ bacteria but showed no nitrites or WBC. Will get urine cultures and hold off on antibiotics for now #History of nicotine dependence: Counseled to quit. Nicotine patch as needed #Hypertension: On amlodipine. IV hydralazine as needed DVT prophylaxis: Lovenox Disposition: Will benefit from placement. Charges/Coding Visit Charges Inpatient E&M: 35939 Subs Hosp L2
--- NOTE | 2024-07-01 15:39 | CASEMGMT ---
Addendum entered by Veronica Manley 07/01/24 16:45: Social Work Initial referral sent to [facility]. DEBBIE Leonard Original Note: Social Work SW met w/pt in room, reviewed prior level of function and anticipated discharge plan. PCP: He was seeing Dr. Turner, pt indicated that Dr. Turner sent him a letter saying he needs to find a new doctor, as he has had difficulty getting in to see him, so now he is not sure who he will see. Specialists: None Pharmacy: [facility] Insurance: [facility] Dual Plan/Medicaid LW/POA: Has not completed LNOK: Pt has a sister Sheila, cannot remember her last name or number, and a niece(Sheila's daughter), Stacie Cleary who works at [employer] Living arrangements/Prior level of function: Pt lives in a basement apartment, says he is normally independent, can get up and down the steps. His landlord [employer] gets pt's groceries. Pt states he cooks, but is not able to get his cleaning done, expressed frustration w/this. DME/HHC/SNF: Pt uses a walker. Pt has not had HHC, has never been to SNF. SW spoke w/pt about going somewhere for rehab prior to returning home. Pt is agreeable to this. SW provided to pt a list from [facility] of custodial facilities in network w/pt's insurance, in pt's preferred geographic area and complete w/quality and resource use data. SW reviewed list w/pt, he would like a referral sent to [employer] as his niece works there. Pt states he cannot remember his sister Sheila's phone number but his niece Stacie will know it. SW can ask to speak w/Stacie Wednesday to get this information. He is not certain what Stacie does there but states she has some authority at [employer]. Referral to be made to [employer], ALTHEA to follow up Wednesday. DEBBIE Leonard
[2024-07-01] MEDS: hydrALAZINE 20 MG/ML Vial 10 MG IV (16:55)
--- NOTE | 2024-07-01 19:30 | MRI_ITS ---
PROCEDURE: MRI lumbar spine without IV contrast REASON FOR EXAM: HISTORY OF DDD AND LUMBAR SPINAL STENOSIS TECHNIQUE: Multisequence multiplanar MR images of the lumbar spine were obtained without the administration of intravenous contrast. Imaging sequences were performed to best display suspected pathology. COMPARISON: 09/02/2021 FINDINGS: Mild chronic compression deformity of T12. Moderate levoscoliosis. Mild retrolisthesis of L1-2 and L2-3. Chronic multilevel degenerative endplate changes and advanced multilevel degenerative disc disease. Conus medullaris is within normal limits and terminates at L1. Moderate paraspinal muscle atrophy. L1-2: Small posterior disc osteophyte complex. Moderate bilateral facet arthrosis and ligamentum flavum hypertrophy. Borderline mild spinal stenosis. Moderate right and mild left foraminal narrowing. L2-3: Posterior disc osteophyte complex. Moderate bilateral facet arthrosis and ligamentum flavum hypertrophy. Moderate spinal stenosis. Moderate right and mild left foraminal narrowing. L3-4: Posterior disc osteophyte complex. Severe bilateral facet arthrosis and ligamentum flavum hypertrophy. Severe spinal stenosis with narrowing of the thecal sac measuring 4.5 mm in AP dimension. Severe right and moderate left foraminal narrowing. L4-5: Posterior disc osteophyte complex. Severe bilateral facet arthrosis and ligamentum flavum hypertrophy. Severe spinal stenosis with narrowing of the thecal sac measuring 4.5 mm in AP dimension. Moderate right and severe left foraminal narrowing. L5-S1: Minimal posterior disc bulge. Severe bilateral facet arthrosis and ligamentum flavum hypertrophy. Borderline mild spinal stenosis. Mild right and moderate/severe left foraminal narrowing. MRI/Spine Lumbar (Routine) IMPRESSION: 1. Acquired multilevel spinal stenosis, severe at L3-4 and L4-5. 2. Acquired moderate to severe multilevel foraminal narrowing. See level by le debbie comments above. 3. Moderate levoscoliosis. 4. Chronic compression fracture of T12. Reading Location: [facility]
[2024-07-01 20:46] LABS: Phosphorus 2.2 mg/dL (2.7-4.5)
[2024-07-02] VITALS (7 sets, daily range): BP systolic 118–178; BP diastolic 66–84; PULSE 74–100; RESP 16–18; TEMP 36.6–36.9; O2SAT 94–98
[2024-07-02] MEDS: hydrALAZINE 20 MG/ML Vial 10 MG IV (05:14)
[2024-07-02 06:04] LABS: Absolute Lymphocyte Count 3.53 X10^3/uL (0.83-4.51); Absolute Neutrophil Count 3.7 X10^3/uL (2.0-7.7); Basophil# 0.05 X10^3/uL; Basophil% 0.6 % (0-1); Eosinophil# 0.11 X10^3/uL; Eosinophils% 1.3 % (0-5); Hematocrit 35.3 % (40-54); Hemoglobin 11.9 g/dL (13.0-16.5); Lymphocyte # 3.53 X10^3/ul (0.83-4.51); Lymphocyte % 43.3 % (19-41); Mean Corp Hgb Conc 33.7 g/dL (32-36); Mean Corpuscular Hgb 32.4 pg (27.0-32.0); Mean Corpuscular Volume 96.2 fL (80-94); Mean Platelet Vol. 9.5 fl (6.2-12.0); Monocyte# 0.73 X10^3/uL; NRBC Flagged by Analyzer 0 % (0-5); Neutrophil % 45.4 % (47-70); POSITIVE MORPHOLOGY YES; Platelet Count 152 K/mm3 (150-450); RBC Distribution Width CV 13.8 % (11.6-14.6); Red Blood Count 3.67 M/mm3 (4.6-6.2); White Blood Count 8.2 K/mm3 (4.4-11.0)
[2024-07-02 06:10] LABS: Differential Indicated SCAN CRITERIA MET
[2024-07-02 06:48] LABS: Anion Gap 11 (5-15); BUN 24 mg/dL (4-19); BUN/Creat Ratio 26.5 RATIO (10-20); Calcium,Total 8.5 mg/dL (7.6-11.0); Carbon Dioxide 20.5 mmol/L (21.0-32.0); Chloride 106 mmol/L (98-108); Creatinine, Serum 0.92 mg/dL (0.70-1.20); EST Glomerular Filtration Rate 88 (>60); Estimated Creatinine Clearance 64.94 ml/min (50-250); Glucose 107 mg/dL (70-99); Sodium Level 137 mmol/L (133-145)
[2024-07-02 07:09] LABS: Atypical Lymphocyte 1+ %; Platelet Estimate ADEQUATE (ADEQ); Red Cell Morphology NORM C+C NORMAL (NORM C&C)
[2024-07-02] MEDS: amLODIPine 10 MG Tablet PO (09:52)
[2024-07-02] MEDS: Enoxaparin 40 MG/0.4 ML Syringe SC (09:56)
[2024-07-02] MEDS: Metoprolol Tartrate 25 MG Tablet 12.5 MG PO ×2 (09:56→21:33)
--- NOTE | 2024-07-02 10:14 | PN_ITS ---
Subjective Subjective Patient seen and examined. He had no active complaints. He is asking if someone can trim his fingernails. Review of systems otherwise negative. Objective Data Objective Data Vital Signs: Vital Signs Temp Pulse Resp BP Pulse Ox O2 Del Method 98.2 F 82 16 118/80 96 Room Air 07/02/24 05:04 07/02/24 09:56 07/02/24 05:04 07/02/24 09:56 07/02/24 05:04 07/02/24 05:04 Oxygen Delivery Method Room Air Weight: 141 lb 8.588 oz Body Mass Index (BMI) 19.8 Intake & Output: Intake and Output for Last 24 Hours 06/30/24 07/01/24 07/02/24 23:59 23:59 23:59 Intake Total 1200 / 1200 1730 / 1730 500 / 500 Output Total 850 / 850 300 / 300 Balance 1200 / 1200 880 / 880 200 / 200 Lab / Micro Data 07/02/24 05:32 07/02/24 05:32 Labs: Laboratory Results - last 24 hr 07/01/24 06:44: Serum Folate 5.33 07/01/24 19:59: Phosphorus 2.2 L 07/02/24 05:32: WBC 8.2, RBC 3.67 L, Hgb 11.9 L, Hct 35.3 L, MCV 96.2 H, MCH 32.4 H, MCHC 33.7, RDW Std Deviation 49.0 H, RDW Coeff of Gracy 13.8, Plt Count 152, MPV 9.5, Immature Gran % (Auto) 0.400, Neut % (Auto) 45.4 L, Lymph % (Auto) 43.3 H, [place] % (Auto) 9.0, Eos % (Auto) 1.3, Baso % (Auto) 0.6, Absolute Neuts (auto) 3.7, Absolute Lymphs (auto) 3.53, Nucleated RBC % 0, Atypical Lymphocytes 1+, Platelet Estimate ADEQUATE, RBC Morphology NORM C+C, Sodium 137, Potassium 4.0, Chloride 106, Carbon Dioxide 20.5 L, Anion Gap 11, BUN 24 H, Creatinine 0.92, Estim Creat Clear Calc 64.94, Est GFR (MDRD) Non-Af 88, BUN/Creatinine Ratio 26.5 H, Glucose 107 H, Calcium 8.5 Micro: Microbiology 06/30/24 17:19 Mucosa - Nose SARS-CoV-2, Influenza & RSV (PCR) - Final Radiography Diagnostic Testing: Radiology Impression Lumbar Spine MRI 07/01/24 19:30 IMPRESSION: 1. Acquired multilevel spinal stenosis, severe at L3-4 and L4-5. 2. Acquired moderate to severe multilevel foraminal narrowing. See level by level comments above. 3. Moderate levoscoliosis. 4. Chronic compression fracture of T12. Reading Location: [facility] Rhythm Strip Rhythm Strip: Sinus Rhythm Rate: 78 Ectopy: None Physical Exam Const alert, oriented x3, no apparent distress and average body habitus General Appearance: cooperative HEENT normocephalic, head/scalp atraumatic, hearing grossly normal bilaterally, moist oral mucous membranes and oropharynx normal Eyes PERRL, EOMs intact bilaterally and conjunctivae normal Neck no lymphadenopathy, supple and no JVD Lymph Lymphatic: no lymphadenopathy noted Resp normal respiratory effort, normal air movement, no retractions, no use of accessory muscles and clear to auscultation bilaterally Cardio regular rate, regular rhythm, S1 normal heart sound, S2 normal heart sound and no murmurs GI normal to inspection, nondistended, normoactive bowel sounds, soft to palpation, non-tender and non-distended Extremity normal to inspection, full ROM, normal capillary refill, no clubbing, cyanosis or edema and no calf tenderness General Extremity: no tenderness to palpation of joints or extremities Skin Skin Narrative: Patient has bruising over Right buttock and abrasion on forehead Neuro oriented x3, CN's II-XII intact bilaterally, moves all extremities, no focal motor deficits and no sensory deficits noted Sensorium / Orientation: awake and alert Speech: speech normal Motor Exam: strength 5/5 throughout and general weakness Psych thought process normal, cooperative and affect normal Appearance: appropriate Assessment & Plan Assessment/Plan (1) DDD (degenerative disc disease): QUALIFIERS: Spinal region: lumbosacral Disc-related pain type: d iscogenic back pain and lower extremity pain Qualified Code(s): M51.372 - Other intervertebral disc degeneration, lumbosacral region with discogenic back pain and lower extremity pain (2) Generalized weakness: PLAN: Plan #Debility and weakness with failure to thrive * Patient admitted with complaint of profound weakness and frequent falls with failure to thrive at home. * MRI of the lumbar spine ordered. PT OT on board. * For precautions. Patient will benefit from placement. * Hip and pelvic x-ray showed demineralization without visible acute displaced fracture * #History of osteoarthritis with lumbar stenosis: * MRI of the lumbar spine ordered to further evaluate this showed acquired multilevel spinal stenosis with moderate to severe multilevel foraminal narrowing and chronic compression fracture of T12 as well as moderate levoscoliosis * PT OT on board. On p.o. Tylenol and oxycodone as needed for pain * Will benefit from follow-up with pain management and spine surgery on outpatient basis. 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 PT OT on board. #Thrombocytopenia: * resolved. Platelets up to 152 today. * # Abnormal urinalysis: * Urinalysis showed 1+ bacteria but showed no nitrites or WBC. * urine cultures pending; hold off on antibiotics for now. * #History of nicotine dependence: Counseled to quit. Nicotine patch as needed #Hypertension: On amlodipine. IV hydralazine as needed DVT prophylaxis: Lovenox Disposition: Will benefit from placement. Charges/Coding Visit Charges Inpatient E&M: 87440 Subs Hosp L2
[2024-07-03] VITALS (7 sets, daily range): BP systolic 137–163; BP diastolic 64–73; PULSE 74–80; RESP 16–18; TEMP 36.4–37.1; O2SAT 95–96; BMI 20.7
[2024-07-03] MEDS: Acetaminophen 325 MG Tablet 650 MG PO ×2 (02:25→09:45)
[2024-07-03 06:33] LABS: Absolute Lymphocyte Count 3.17 X10^3/uL (0.83-4.51); Absolute Neutrophil Count 3.2 X10^3/uL (2.0-7.7); Basophil# 0.03 X10^3/uL; Basophil% 0.4 % (0-1); Eosinophil# 0.05 X10^3/uL; Eosinophils% 0.7 % (0-5); Hematocrit 30.7 % (40-54); Hemoglobin 10.2 g/dL (13.0-16.5); Lymphocyte # 3.17 X10^3/ul (0.83-4.51); Lymphocyte % 43.9 % (19-41); Mean Corp Hgb Conc 33.2 g/dL (32-36); Mean Corpuscular Hgb 32.1 pg (27.0-32.0); Mean Corpuscular Volume 96.5 fL (80-94); Mean Platelet Vol. 9.3 fl (6.2-12.0); Monocyte# 0.76 X10^3/uL; Monocyte% 10.5 % (0-10); NRBC Flagged by Analyzer 0 % (0-5); Neutrophil # 3.19 X10^3/uL (2.7-7.7); Neutrophil % 44.2 % (47-70); POSITIVE MORPHOLOGY YES; Platelet Count 128 K/mm3 (150-450); RBC Distribution Width SD 49.7 fl (35.1-43.9); Red Blood Count 3.18 M/mm3 (4.6-6.2); White Blood Count 7.2 K/mm3 (4.4-11.0)
[2024-07-03 06:46] LABS: Differential Indicated SCAN CRITERIA MET
--- NOTE | 2024-07-03 09:18 | CASEMGMT ---
Discharge Planning A list of?SNF providers including quality and resource use data and consistent with the patient's preferred geographic region, medical needs, and insurance network was created in [employer].? This list was provided to the SW. Sarina Contrersa Discharge Planning Asst.
--- NOTE | 2024-07-03 09:33 | CASEMGMT ---
Discharge Planning [facility] declined d/t being out of network. Sarina Contreras DC Planning Asst.
[2024-07-03] MEDS: amLODIPine 10 MG Tablet PO (09:41)
[2024-07-03] MEDS: Enoxaparin 40 MG/0.4 ML Syringe SC (09:41)
[2024-07-03] MEDS: Metoprolol Tartrate 25 MG Tablet 12.5 MG PO ×2 (09:41→21:38)
--- NOTE | 2024-07-03 09:43 | PN_ITS ---
Subjective Subjective Patient seen and examined. He complained of pain in his left hand and said he was not able to make a fist fully. He denied any redness to the hand or any trauma. He denies any history of gout. Review of systems is otherwise negative. Objective Data Objective Data Vital Signs: Vital Signs Temp Pulse Resp BP Pulse Ox O2 Del Method 98.8 F 77 18 154/69 H 96 Room Air 07/03/24 02:21 07/03/24 02:21 07/03/24 02:21 07/03/24 02:21 07/03/24 08:14 07/03/24 08:14 Oxygen Delivery Method Room Air Weight: 148 lb 2.41 oz Body Mass Index (BMI) 20.7 Intake & Output: Intake and Output for Last 24 Hours 07/01/24 07/02/24 07/03/24 23:59 23:59 23:59 Intake Total 1730 / 1730 500 / 500 600 / 600 Output Total 850 / 850 300 / 300 Balance 880 / 880 200 / 200 600 / 600 Lab / Micro Data 07/03/24 05:56 07/03/24 05:56 Labs: Laboratory Results - last 24 hr 07/03/24 05:56: WBC 7.2, RBC 3.18 L, Hgb 10.2 L, Hct 30.7 L, MCV 96.5 H, MCH 32.1 H, MCHC 33.2, RDW Std Deviation 49.7 H, RDW Coeff of Gracy 14.0, Plt Count 128 L, MPV 9.3, Immature Gran % (Auto) 0.300, Neut % (Auto) 44.2 L, Lymph % (Auto) 43.9 H, [place] % (Auto) 10.5 H, Eos % (Auto) 0.7, Baso % (Auto) 0.4, Absolute Neuts (auto) 3.2, Absolute Lymphs (auto) 3.17, Nucleated RBC % 0 Micro: Microbiology 06/30/24 17:19 Mucosa - Nose SARS-CoV-2, Influenza & RSV (PCR) - Final Rhythm Strip Rhythm Strip: Sinus Rhythm Rate: 78 Ectopy: None Physical Exam Const alert, oriented x3, no apparent distress and average body habitus General Appearance: cooperative HEENT normocephalic, head/scalp atraumatic, hearing grossly normal bilaterally, moist oral mucous membranes and oropharynx normal Eyes PERRL, EOMs intact bilaterally and conjunctivae normal Neck no lymphadenopathy, supple and no JVD Lymph Lymphatic: no lymphadenopathy noted Resp normal respiratory effort, normal air movement, no retractions, no use of accessory muscles and clear to auscultation bilaterally Cardio regular rate, regular rhythm, S1 normal heart sound, S2 normal heart sound and no murmurs GI normal to inspection, nondistended, normoactive bowel sounds, soft to palpation, non-tender and non-distended Extremity normal to inspection, full ROM, normal capillary refill, no clubbing, cyanosis or edema and no calf tenderness Extremity Narrative: 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 NO differential warmth Skin Skin Narrative: Patient has bruising over Right buttock and abrasion on forehead General Skin Exam: no breakdown Neuro oriented x3, CN's II-XII intact bilaterally, moves all extremities and no focal motor deficits Neuro Narrative: Patient is able to stand up with assistance but not able to ambulate. Sensorium / Orientation: awake, alert, oriented to person, oriented to place and oriented to time Speech: speech normal Motor Exam: strength 5/5 throughout and general weakness Psych thought process normal, cooperative and affect normal Appearance: appropriate Assessment & Plan Assessment/Plan (1) DDD (degenerative disc disease): QUALIFIERS: Disc-related pain type: discogenic back pain and lower extremity pain Spinal region: lumbosacral Qualified Code(s): M51.372 - Other intervertebral disc degeneration, lumbosacral region with discogenic back pain and lower extremity pain (2) Generalized weakness: PLAN: Plan #Debility and weakness with failure to thrive * Patient admitted with complaint of profound weakness and frequent falls with failure to thrive at home. * MRI of the lumbar spine as below. PT OT on board. * For precautions. Patient will benefit from placement. * Hip and pelvic x-ray showed demineralization without visible acute displaced fracture * #History of osteoarthritis with lumbar stenosis: * MRI of the lumbar spine ordered to further evaluate this showed acquired multilevel spinal stenosis with moderate to severe multilevel foraminal narrowing and chronic compression fracture of T12 as well as moderate levoscoliosis * PT OT on board. On p.o. Tylenol and oxycodone as needed for pain * Will benefit from follow-up with pain management and spine surgery on outpatient basis. #Left hand pain * patient complains of not being able to make a fist with his left hand. * Has no history of gout. * will get xray of the left hand and check serum uric acid levels. 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 PT OT on board. #Thrombocytopenia: * resolved. Platelets up to 152 today. * # Abnormal urinalysis: * Urinalysis showed 1+ bacteria but showed no nitrites or WBC. * urine cultures still pending; hold off on antibiotics for now. * #History of nicotine dependence: Counseled to quit. Nicotine patch as needed #Hypertension: On amlodipine. IV hydralazine as needed DVT prophylaxis: Lovenox Disposition: awaiting placement 16:00 I was informed by patient's nurse that patient had some worsening left-sided weakness. According to patient this weakness was not new and he had been leaning towards the left side at home. Out of an abundance of precaution we will get a CT of the brain and CT of the head and neck. 1 on-call stroke alert as patient is not a TNK candidate because his symptoms have been going on for more than a day. Patient does have Wernicke Korsakoff syndrome in light of his chronic alcohol abuse which can cause gait instability also. Hold off on discharge today pending review of CT brain and CTA head and neck. Charges/Coding Visit Charges Inpatient E&M: 32090 Subs Hosp L2
--- NOTE | 2024-07-03 10:01 | RAD_ITS ---
PROCEDURE: HAND MIN 3 VIEWS ([facility]), 07/03/2024 REASON FOR EXAM: LEFT HAND PAIN TECHNIQUE: PA, lateral, and oblique views of the left hand were obtained COMPARISON: None FINDINGS: Lateral views limited by positioning. Fracture/dislocation: None visible. Joint space(s): Mild diffuse IP joint space loss. Moderate to advanced joint space loss at the 1st [facility]. Soft tissues: Unremarkable. Foreign bodies: None visible. Bone mineralization: Demineralization. RAD/Hand Min 3 Views IMPRESSION: 1. Demineralization without visible acute displaced fracture. 2. Degenerative findings and additional description as above. Reading Location: [id number]
--- NOTE | 2024-07-03 10:58 | CASEMGMT ---
Social Work- SW met with pt to discuss that [facility] is not in insurance network and ask pt for additional selections. Pt selected [facility] as [facility]. DCA notified of referral request. ALTHEA remains available to follow. JEFFREY De Anda
--- NOTE | 2024-07-03 11:24 | CASEMGMT ---
[facility] at [facility] accepted and will submit for precert. Sarina Contreras DC Planning Asst.
--- NOTE | 2024-07-03 12:00 | CASEMGMT ---
[facility] has obtained auth to admit. SW updated. Sarina Contreras DC Planning Asst.
[2024-07-03 13:35] LABS: Anion Gap 6 (5-15); BUN 28 mg/dL (4-19); BUN/Creat Ratio 28.2 RATIO (10-20); Calcium,Total 8.5 mg/dL (7.6-11.0); Carbon Dioxide 23.9 mmol/L (21.0-32.0); Chloride 105 mmol/L (98-108); EST Glomerular Filtration Rate 79 (>60); Estimated Creatinine Clearance 62.53 ml/min (50-250); Glucose 93 mg/dL (70-99); Potassium 4.3 mmol/L (3.3-5.1); Sodium Level 136 mmol/L (133-145)
--- NOTE | 2024-07-03 14:13 | TREXTCAR_ITS ---
Diet Diet Order/Speech Therapy: 07/01/24 14:23 Diet: Regular - General Type of Dietary Supplement:: Ensure Plus High Protein Diet Comments: 240 ml EPHP tid w/ meals Routine Orders/Code Status Enema Type: Fleetz Enema Frequency: Daily PRN Suppository Type: Dulcolax 10mg Suppository Frequency: Daily PRN DC O2, CPAP, BIPAP needs Home O2 Discharge instructions: No Wound(s) left hand: Wound Type: Abrasion left forearm: Wound Type: Abrasion right elbow: Wound Type: Abrasion left upper arm: Wound Type: Abrasion forehead: Wound Type: Abrasion above lip: Wound Type: Abrasion right great toe: Wound Type: Abrasion Therapies Weight Bearing: Weight bearing as tolerated Physical Therapy: Eval and Treat Occupational Therapy: Eval and Treat Problem/Diagnosis (1) DDD (degenerative disc disease): Status: Acute (2) Generalized weakness: Status: Acute Code(s): R53.1 - Weakness Plan #Debility and weakness with failure to thrive * Patient admitted with complaint of profound weakness and frequent falls with failure to thrive at home. * MRI of the lumbar spine as below. PT OT on board. * For precautions. Patient will benefit from placement. * Hip and pelvic x-ray showed demineralization without visible acute displaced fracture * #History of osteoarthritis with lumbar stenosis: * MRI of the lumbar spine ordered to further evaluate this showed acquired multilevel spinal stenosis with moderate to severe multilevel foraminal narrowing and chronic compression fracture of T12 as well as moderate levoscoliosis * PT OT on board. On p.o. Tylenol and oxycodone as needed for pain * Will benefit from follow-up with pain management and spine surgery on outpatient basis. #Left hand pain * patient complains of not being able to make a fist with his left hand. * Has no history of gout. * will get xray of the left hand and check serum uric acid levels. 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 PT OT on board. #Thrombocytopenia: * resolved. Platelets up to 152 today. * # Abnormal urinalysis: * Urinalysis showed 1+ bacteria but showed no nitrites or WBC. * urine cultures still pending; hold off on antibiotics for now. * #History of nicotine dependence: Counseled to quit. Nicotine patch as needed #Hypertension: On amlodipine. IV hydralazine as needed DVT prophylaxis: Lovenox Disposition: awaiting placement Allergies/Procedures Done in Hospital Allergies No Known Allergies Allergy (Verified 11/15/20 08:24) Procedures: None Type of Care/Length of Stay Estimated LOS: Convalescent Care Less Than 30 days Type of Care Needed: Skilled Rehab Potential: Fair Prognosis: Fair Additional Orders/Day of Discharge Day of Discharge: 07/03/24 Dietary and Speech Recommendations Dietitian Recommendations/Changes: Adjust to liberal regular diet d/t weight loss. Discontinue 120ml ensure compact TID with medpass. Will order 240ml ensure plus high protein TID with meals. Will monitor weight trends. Discharge Plan Admission Admit Date/Time: 06/30/24 19:32 Primary Reason for Your Visit: debility and failure to thrive Attending Provider: Sylwia Pennintgon Primary Care Provider: Wai Turner Consulting Providers: Dwayne Johnson Instructions Patient Instructions: Aging and Nutrition Problems, ED FALL-from [id number]-Isb[facility] Discharge Orders/Prescriptions Prescriptions: New amlodipine 10 mg Tablet 10 mg PO DAILY Qty: 30 2RF metoprolol tartrate 25 mg Tablet 12.5 mg PO BID Qty: 30 2RF Referrals / Follow Up: Jose Enrique Gonzales MD [Med Staff - Active Staff] - Within 2 Weeks (see to establish care for spinal stenosis) Wai Turner MD [Primary Care Provider] - In 1 Week Disposition Disposition (needs filled in before D/C Order can be placed): [facility] (1) DDD (degenerative disc disease) Qualifiers: Spinal region: lumbosacral Disc-related pain type: discogenic back pain and lower extremity pain Qualified Code(s): M51.372 - Other intervertebral disc degeneration, lumbosacral region with discogenic back pain and lower extremity pain
--- NOTE | 2024-07-03 14:14 | PCM.DC.SUM ---
Providers Date of Admission: 06/30/24 Date of Discharge: 07/04/24 Primary Care Physician: Dr. Wai Turner MD Reason For Visit: GERNERALIZED WEAKNESS ABBULATORY DYSFUNCTION Diagnosis Discharge Diagnosis (1) DDD (degenerative disc disease): Status: Acute Qualifiers: Disc-related pain type: discogenic back pain and lower extremity pain Spinal region: lumbosacral Qualified Code(s): M51.372 - Other intervertebral disc degeneration, lumbosacral region with discogenic back pain and lower extremity pain (2) Generalized weakness: Status: Acute Code(s): R53.1 - Weakness Plan #Debility and weakness with failure to thrive Patient admitted with complaint of profound weakness and frequent falls with failure to thrive at home. MRI of the lumbar spine as below. PT OT on board. For precautions. Patient will benefit from placement. Hip and pelvic x-ray showed demineralization without visible acute displaced fracture #History of osteoarthritis with lumbar stenosis: MRI of the lumbar spine ordered to further evaluate this showed acquired multilevel spinal stenosis with moderate to severe multilevel foraminal narrowing and chronic compression fracture of T12 as well as moderate levoscoliosis PT OT on board. On p.o. Tylenol and oxycodone as needed for pain Will benefit from follow-up with pain management and spine surgery on outpatient basis. #Left hand pain patient complains of not being able to make a fist with his left hand. Has no history of gout. will get xray of the left hand and check serum uric acid levels. 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 PT OT on board. #Thrombocytopenia: resolved. Platelets up to 152 today. # Abnormal urinalysis: Urinalysis showed 1+ bacteria but showed no nitrites or WBC. urine cultures still pending; hold off on antibiotics for now. #History of nicotine dependence: Counseled to quit. Nicotine patch as needed #Hypertension: On amlodipine. IV hydralazine as needed DVT prophylaxis: Lovenox Disposition: awaiting placement Medications at Discharge Home Medications amlodipine 10 mg tablet 10 mg PO DAILY #30 tabs 07/03/24 metoprolol tartrate 25 mg tablet 12.5 mg (1/2 x 25 mg) PO BID #30 tabs 07/03/24 Hospital Course Operations None Procedures None Summary of Care Provided Minutes Spent on Discharge: 45 Hospital Course: Patient is 73 y/o male with a PMH as outlined including WErnicke Korsakoff syndrome due to chronic alcohol abuse and lumbar spinal stenosis with ambulatory dysfunction and frequent falls as well as osteoarthritis who was admitted with a complaint of debility and pain and weakness in his left leg after a mechanical fall two week prior to admission. He had had several falls in the preceding two weeks prior to admission. He lived at home alone and said he was unable to take care of himself. He was therefore admitted to be managed for debility and failure to thrive. MRI of the lumbar spine showed multilevel spinal stenosis with moderate to severe multilevel foraminal narrowing and chronic compression fracture of T12 as well as moderate levoscoliosis. He worked with physical therapy and was deemed as needing skilled care. There was concern about some left sided weakness and so he had a CT of the brain and CTA of the head and neck which showed no evidence of stroke or hemodynamically significant stenosis. There was low concern for stroke as per the patient, the left sided weakness was chronic with no numbness or tingling and was likely related to his underlying spinal stenosis and Wernicke Korsakoff syndrome. He was therefore discharged to SNF on 07/04/2024. He is to follow up with his PCP within 1-2 weeks. He is to follow up with his PCP within 1-2 weeks. BLood pressure was elevated during admission so he was started on PO amlodipine and PO metoprolol and given scripts on discharge. Patient seen and examined. He had no active complaints and had an uneventful night. Review of systems is otherwise negative. Home meds reviewed and reconciled. Physical Exam Const alert, oriented x3, no apparent distress and average body habitus General Appearance: cooperative and comfortable Orientation / Consciousness: awake Exam Limitations: no limitations HEENT normocephalic, head/scalp atraumatic, hearing grossly normal bilaterally, moist oral mucous membranes and oropharynx normal Mouth: oral and palatal mucosa normal Eyes PERRL, EOMs intact bilaterally and conjunctivae normal Neck no lymphadenopathy, supple and no JVD Lymph Lymphatic: no lymphadenopathy noted Resp normal respiratory effort, normal air movement, no retractions, no use of accessory muscles and clear to auscultation bilaterally Cardio regular rate, regular rhythm, S1 normal heart sound, S2 normal heart sound and no murmurs GI normal to inspection, nondistended, normoactive bowel sounds, soft to palpation, non-tender and non-distended Extremity normal to inspection, full ROM, normal capillary refill and no clubbing, cyanosis or edema General Extremity: no tenderness to palpation of joints or extremities Skin no rashes or lesions noted Skin Narrative: Patient has bruising over Right buttock and abrasion on forehead General Skin Exam: no breakdown Neuro oriented x3, CN's II-XII intact bilaterally, moves all extremities and no sensory deficits noted Neuro Narrative: Patient is able to stand up with assistance but not able to ambulate. Sensorium / Orientation: awake, alert, oriented to person, oriented to place and oriented to time Speech: speech normal Motor Exam: strength 5/5 throughout and general weakness Psych thought process normal, cooperative and affect normal Appearance: appropriate Weight / BMI Weight Weight: 147 lb 0.773 oz Body Mass Index (BMI) 20.5 ABG / Lab / Microbiology Data 07/04/24 05:23 07/04/24 05:23 Laboratory: Laboratory Results - last 24 hr 07/03/24 05:56: Uric Acid 4.1 07/04/24 05:23: WBC 7.2, RBC 3.25 L, Hgb 10.4 L, Hct 31.8 L, MCV 97.8 H, MCH 32.0, MCHC 32.7, RDW Std Deviation 50.5 H, RDW Coeff of Gracy 14.0, Plt Count 140 L, MPV 9.6, Immature Gran % (Auto) 0.400, Neut % (Auto) 48.9, Lymph % (Auto) 41.3 H, [place] % (Auto) 7.3, Eos % (Auto) 1.7, Baso % (Auto) 0.4, Absolute Neuts (auto) 3.5, Absolute Lymphs (auto) 2.98, Nucleated RBC % 0, Differential Comment SCANNED, Platelet Estimate SLT DEC, RBC Morphology NORM C+C, Sodium 137, Potassium 4.3, Chloride 106, Carbon Dioxide 24.4, Anion Gap 7, BUN 24 H, Creatinine 0.89, Estim Creat Clear Calc 69.74, Est GFR (MDRD) Non-Af 91, BUN/Creatinine Ratio 26.6 H, Glucose 93, Calcium 8.6 Microbiology: Microbiology 07/02/24 08:36 Urine, Clean Catch Urine Culture - Final Mixed Gram Positive Organisms 06/30/24 17:19 Mucosa - Nose SARS-CoV-2, Influenza & RSV (PCR) - Final Radiography Diagnostic Testing: Radiology Impression Head/Neck CTA 07/03/24 14:41 IMPRESSION: Atherosclerotic calcification of the anterior and posterior intracranial circulation without acute occlusion or thrombosis. No aneurysm is noted. 30% right and 18% left ICA stenosis by NASCET criteria. One or more dose reduction techniques were used (e.g., Automated exposure control, adjustment of the mA and/or kV according to patient size, use of iterative reconstruction technique). [facility] Instructions Discharge Diet: Low fat / Low cholesterol Discharge Activity: Return to Normal Activity Weight Bearing Status: Weight bearing as tolerated Call your doctor if you observe: Fever of 101 or Higher, Shortness of breath, Dizziness, Swelling in the ankles and Chest pain DC O2, CPAP, BIPAP Needs Home O2 Discharge instructions: No DC home with Oxygen: No Meaningful Use Info Meaningful Use Meaningful Use Diagnoses (Choose all that apply): None applicable Ischemic Stroke Statin Dosing Therapy Reference: STATIN DOSE THERAPY REFERENCE: * Patients > 75 years receive moderate or high dose statin therapy. * Patients 75 years or YOUNGER should receive HIGH intensity statin dose unless contraindicated. You will be required to document reason for non-treatment if statin daily dose does not meet guidelines. HIGH DOSE STATIN THERAPY DAILY Atorvastatin > than or = to 40 mg Rosuvastatin > than or = to 20 mg Amlodipine + Atorvastatin > than or = to 2.5/40 mg Ezetimibe + Simvastatin 10/80 mg Simvastatin 80mg Discharge Plan Admission Admit Date/Time: 06/30/24 19:32 Primary Reason for Your Visit: debility and failure to thrive Attending Provider: Sylwia Pennington Primary Care Provider: Wai Turner Consulting Providers: Dwayne Johnson Instructions Patient Instructions: Aging and Nutrition Problems, ED FALL-from [id number] Discharge Orders/Prescriptions Prescriptions: New amlodipine 10 mg Tablet 10 mg PO DAILY Qty: 30 2RF metoprolol tartrate 25 mg Tablet 12.5 mg PO BID Qty: 30 2RF Referrals / Follow Up: Jose Enrique Gonzales MD [Med Staff - Active Staff] - Within 2 Weeks (see to establish care for spinal stenosis) Wai Turner MD [Primary Care Provider] - In 1 Week Disposition Disposition (needs filled in before D/C Order can be placed): [facility] Charges/Coding Visit Charges Inpatient E&M: 03252 Disch Hosp >30min
--- NOTE | 2024-07-03 14:22 | PHA.DC.MR.R ---
Pharmacy [place] Med Reconciliation Pharmacy Service has performed discharge medication reconciliation for this patient. D/C to SNF, medications reviewed. The patient's discharge medication list was reviewed for discrepancies and discrepancies were resolved. Medications at Discharge Home Medications amlodipine 10 mg tablet 10 mg PO DAILY #30 tabs 07/03/24 metoprolol tartrate 25 mg tablet 12.5 mg (1/2 x 25 mg) PO BID #30 tabs 07/03/24
[2024-07-03 14:41] LABS: Bedside Glucose 121 mg/dL (74-106)
--- NOTE | 2024-07-03 14:41 | CT_ITS ---
PROCEDURE: CTA HEAD AND NECK W/ CONTRAST REASON FOR EXAM: WORSENING WEAKNESS TECHNIQUE: CTA HEAD AND NECK WITH IV CONTRAST AND 3-D CONTRAST: COMPARISON: None. FINDINGS: AORTIC ARCH The aortic arch is normal. There is a common trunk of the innominate and left common carotid arteries. Calcified and noncalcified plaque throughout the proximal brachiocephalic arteries, without hemodynamically significant stenosis. EXTRACRANIAL CAROTIDS Dense atherosclerotic calcification and noncalcified plaque at the bilateral carotid bifurcations and proximal ICAs more prominent on the right with resultant luminal narrowing. RIGHT ICA Maximum stenosis (NASCET): 30 % LEFT ICA Maximum stenosis (NASCET): 18 % SKULL BASE The petrous, cavernous and supraclinoid segments of the distal internal carotid arteries are patent with normal configuration. The ophthalmic arteries, posterior communicating artery and anterior choroidal artery origins are normal. INTRACRANIAL VASCULATURE Cerebral Arteries: Mild atherosclerotic calcification of the bilateral carotid siphons, without hemodynamically significant stenosis. Otherwise, the anterior, middle and posterior cerebral artery distributions are within normal limits. [place]: The A1 and P1 segments are patent. There is a patent anterior communicating artery with normal configuration. There are small patent posterior communicating arteries with normal configuration. Venous Drainage: Unremarkable. VERTEBROBASILAR SYSTEM The proximal subclavian arteries, both vertebral arteries and basilar artery are widely patent. The cerebellar arteries are within normal limits. NONVASCULAR There is no abnormal intracranial enhancement. The ventricles, cisterns, sulci and parenchymal attenuation are normal. Degenerative changes of the cervical spine. Emphysema within the imaged lung apices. CT/CTA Head AND Neck W/ Contrast IMPRESSION: Atherosclerotic calcification of the anterior and posterior intracranial circul ation without acute occlusion or thrombosis. No aneurysm is noted. 30% right and 18% left ICA stenosis by NASCET criteria. One or more dose reduction techniques were used (e.g., Automated exposure contr ol, adjustment of the mA and/or kV according to patient size, use of iterative reconstruction technique). Reading Location: [facility]
[2024-07-03 16:59] LABS: Uric Acid 4.1 mg/dL (3.5-7.2)
[2024-07-04 05:08] VITALS: BP 177/81; PULSE 70; RESP 18; TEMP 36.6; O2SAT 93
[2024-07-04 05:13] VITALS: BMI 20.5
[2024-07-04 05:16] VITALS: BP 177/81; PULSE 70
[2024-07-04] MEDS: hydrALAZINE 20 MG/ML Vial 10 MG IV (05:16)
[2024-07-04 06:32] LABS: Absolute Lymphocyte Count 2.98 X10^3/uL (0.83-4.51); Absolute Neutrophil Count 3.5 X10^3/uL (2.0-7.7); Basophil# 0.03 X10^3/uL; Basophil% 0.4 % (0-1); Eosinophil# 0.12 X10^3/uL; Eosinophils% 1.7 % (0-5); Hematocrit 31.8 % (40-54); Hemoglobin 10.4 g/dL (13.0-16.5); Lymphocyte # 2.98 X10^3/ul (0.83-4.51); Lymphocyte % 41.3 % (19-41); Mean Corp Hgb Conc 32.7 g/dL (32-36); Mean Corpuscular Volume 97.8 fL (80-94); Mean Platelet Vol. 9.6 fl (6.2-12.0); Monocyte# 0.53 X10^3/uL; Monocyte% 7.3 % (0-10); NRBC Flagged by Analyzer 0 % (0-5); Neutrophil # 3.53 X10^3/uL (2.7-7.7); Neutrophil % 48.9 % (47-70); POSITIVE MORPHOLOGY YES; Platelet Count 140 K/mm3 (150-450); RBC Distribution Width SD 50.5 fl (35.1-43.9); Red Blood Count 3.25 M/mm3 (4.6-6.2); White Blood Count 7.2 K/mm3 (4.4-11.0)
[2024-07-04 06:33] LABS: Differential Indicated SCAN CRITERIA MET
[2024-07-04 06:52] LABS: Anion Gap 7 (5-15); BUN 24 mg/dL (4-19); BUN/Creat Ratio 26.6 RATIO (10-20); Calcium,Total 8.6 mg/dL (7.6-11.0); Carbon Dioxide 24.4 mmol/L (21.0-32.0); Chloride 106 mmol/L (98-108); Creatinine, Serum 0.89 mg/dL (0.70-1.20); EST Glomerular Filtration Rate 91 (>60); Estimated Creatinine Clearance 69.74 ml/min (50-250); Glucose 93 mg/dL (70-99); Potassium 4.3 mmol/L (3.3-5.1); Sodium Level 137 mmol/L (133-145)
[2024-07-04 07:15] LABS: Differential Comment SCANNED; Platelet Estimate SLT DEC (ADEQ); Red Cell Morphology NORM C+C NORMAL (NORM C&C)
[2024-07-04 08:49] VITALS: BP 140/71; PULSE 73; RESP 18; TEMP 36.6; O2SAT 96
[2024-07-04 08:55] VITALS: O2SAT 93
[2024-07-04 08:56] VITALS: PULSE 73
[2024-07-04] MEDS: Enoxaparin 40 MG/0.4 ML Syringe SC (08:56)
[2024-07-04] MEDS: amLODIPine 10 MG Tablet PO (08:56)
[2024-07-04] MEDS: Metoprolol Tartrate 25 MG Tablet 12.5 MG PO (08:56)
--- NOTE | 2024-07-04 10:16 | PHA.DC.MR.R ---
Pharmacy [place] Med Reconciliation Pharmacy Service has performed discharge medication reconciliation for this patient. The patient's discharge medication list was reviewed for discrepancies and discrepancies were resolved. Medications at Discharge Home Medications amlodipine 10 mg tablet 10 mg PO DAILY #30 tabs 07/03/24 metoprolol tartrate 25 mg tablet 12.5 mg (1/2 x 25 mg) PO BID #30 tabs 07/03/24
--- NOTE | 2024-07-04 11:25 | CASEMGMT ---
Social Work- Precert has been obtained.? Physician updated and pt is ready for discharge today.? PASRR form completed in [facility]. SW met with pt and they are agreeable to discharge plan as stated above.? DCA notified of discharge. Final discharge arrangements and notification to patient/family as per discharge sales planning coordinator.? ? Disposition:[facility], skilled level of care under convalescent stay. JEFFREY De Anda
--- NOTE | 2024-07-04 12:39 | CASEMGMT ---
Discharge Planning Discharge orders, signed med list, and transport time sent to [facility]. Physicians will transport pt by cot at 2p. Nursing, SW, and pt updated. left for pts sister Sheila. Sarina Contreras DC Planning Asst.
--- NOTE | 2024-07-04 13:09 | NURSING ---
Report called to [facility] at [facility] [phone]. insurance sales supervisor time is at 14:00.
[2024-07-04 14:00] VITALS: BP 165/81; PULSE 83; RESP 18; TEMP 36.3; O2SAT 95
== END 2024-07-04 15:02 | disposition skilled nursing facility (03) ==
LOC: ED 18:54 → MS3 19:42
PROVIDERS: Admitting Provider Internal Medicine; Emergency Provider Emergency Medicine; PCP Family Medicine; Referring Provider Internal Medicine; Visit Provider Student in an Organized Health Care Education/Training Program
DX: R62.7 Adult failure to thrive (principal); M48.56XA Collapsed vertebra, not elsewhere classified, lumbar region, initial encounter for fracture; R53.81 Other malaise; M48.061 Spinal stenosis, lumbar region without neurogenic claudication; I10 Essential (primary) hypertension; E51.2 Wernicke's encephalopathy; M41.9 Scoliosis, unspecified; M51.370 Other intervertebral disc degeneration, lumbosacral region with discogenic back pain only; R26.89 Other abnormalities of gait and mobility; M51.369 Other intervertebral disc degeneration, lumbar region without mention of lumbar back pain or lower extremity pain; M51.379 Other intervertebral disc degeneration, lumbosacral region without mention of lumbar back pain or lower extremity pain; M79.642 Pain in left hand; F10.11 Alcohol abuse, in remission; D69.6 Thrombocytopenia, unspecified; R82.90 Unspecified abnormal findings in urine; F17.210 Nicotine dependence, cigarettes, uncomplicated; Z91.81 History of falling; Z79.899 Other long term (current) drug therapy
CPT/HCPCS: 36415; 70496; 70498; 71046; 71250; 72148; 73130; 73502; 80048; 80053; 80061; 80307; 81001; 82077; 82607; 82746; 82962; 83036; 83735; 84100; 84443; 84550; 85025; 87086; 87088; 87631; 93005; 94668; 96361; 96372; 96374; 96376; 97116; 97162; 97166; 97530; 97535; 97802; 99221; 99285; Q9967; A4216; G0378